=== PATIENT | female | born 1955 | race Caucasian/White ===

== ENCOUNTER 2016-07-15 04:32 | Inpatient (IN) | payer BC ==
[~2016-07-15] VITALS: Ht 160 cm; Wt 125.4 kg
[2016-07-15] VITALS (17 sets, daily range): BP systolic 83–139; BP diastolic 51–98; PULSE 65–127; RESP 18–20; TEMP 97.7–98.7; O2SAT 96–100
[~2016-07-15 04:32] MED LIST: ASPI325T PO; FURO1TAB60 PO; METO50TA11 PO; NAPR500 PO
[2016-07-15] MEDS ORDERED: SODIUM CHLOR 0.9% 1000 ML INJ 1,000 ML IV SCH ×2 (04:45→06:46)
[2016-07-15] MEDS ORDERED: MULTTAB67 PO (04:48)
[2016-07-15] MEDS ORDERED: EYECAP PO (04:48)
--- NOTE | 2016-07-15 04:51 | PD ---
HPI Chief Complaint: Cardiac Complaint Time Seen by Provider: 04:33 Travel History International Travel<30 days: No Contact w/Intl Traveler<30days: No Traveled to known affect area: No History of Present Illness HPI 61-year-old female complains of palpitation. Patient states the symptoms started about 12 hours ago. Patient has history of A. fib and on metoprolol. Her fitter / welder is Dr. Collins. Patient denies any chest pain or shortness of breath with the palpitation. Patient denies any headache. Patient denies any dizziness. Patient denies abdominal pain. Patient denies any nausea vomiting diarrhea. Patient take aspirin twice a day. Patient denies any history hypertension, diabetes, dyslipidemia. Patient is a nonsmoker. [facility] Patient was found to be in atrial fibrillation with heart rates 280. Patient was given Cardizem 20 mg IV. Patient converted to atrial fibrillation with a rate in the 80s. PFSH Past Medical History Hx Anticoagulant Therapy: Yes (ASPIRIN) Arthritis: Yes Atrial Fibrillation: Yes Heart Rhythm Problems: Yes (AFIB) Cancer: No Cardiovascular Problems: Yes (AFIB) High Cholesterol: No Chest Pain: No Congestive Heart Failure: No Developmental Delay: Yes Diabetes: No Diminished Hearing: No Endocrine: No Genitourinary: No Hepatitis: No Hiatal Hernia: No Hypertension: Yes Immune Disorder: No Musculoskeletal: Yes (arthritis both knees) Neurologic: No Psychiatric: No Reproductive: No Respiratory: No Thyroid Disease: No ?: Not Menopausal: Yes Past Surgical History Abdominal Surgery: Yes (epi-n-y gastric by-pass hernia repair with mesh) AICD: No Cardiac Surgery: No Ear Surgery: No Endocrine Surgery: No Eye Surgery: Yes (lasik eye surgery) Genitourinary Surgery: No Gynecologic Surgery: No Joint Replacement: No Neurologic Surgery: No Oral Surgery: No Pacemaker: No Thoracic Surgery: Yes (breast reduction with extra fat tissue removed from arms ) Other Surgery: Yes (LEFT HAND) Social History Alcohol Use: Yes (3 DRINKS A MONTH) Tobacco Use: No Substance Use: No Allergies-Medications (Allergen,Severity, Reaction): Coded Allergies: No Known Allergies (Verified , 04/20/16) Reported Meds & Prescriptions Reported Meds & Active Scripts Active Reported Eye Vitamins (Multiple Vitamins W/ Minerals) 1 Cap 1 Cap PO DAILY Multiple Vitamin 1 Tab 1 Tab PO DAILY Lasix (Furosemide) 40 Mg Tab 40 Mg PO DAILY Naprosyn (Naproxen) 500 Mg Tab 500 Mg PO BID Aspirin 325 Mg Tab 325 Mg PO BID Metoprolol Succinate ER 24 HR (Metoprolol Succinate) 50 Mg Tab 50 Mg PO BID Review of Systems General / Constitutional: No: Fever Eyes: No: Visual changes HENT: No: Headaches Cardiovascular: Positive: Palpitations, No: Chest Pain or Discomfort Respiratory: No: Shortness of Breath Gastrointestinal: No: Abdominal Pain Genitourinary: No: Dysuria Musculoskeletal: No: Pain Skin: No Rash Neurologic: No: Weakness Psychiatric: No: Depression Endocrine: No: Polydipsia Hematologic/Lymphatic: No: Easy Bruising Physical Exam Narrative GENERAL: Well-nourished, well-developed patient. SKIN: Warm and dry. HEAD: Normocephalic. EYES: No scleral icterus. No injection or drainage. NECK: Supple, trachea midline. No JVD or lymphadenopathy. CARDIOVASCULAR: Irregularly irregular rate and rhythm without murmurs, gallops, or rubs. RESPIRATORY: Breath sounds equal bilaterally. No accessory muscle use. GASTROINTESTINAL: Abdomen soft, non-tender, nondistended. MUSCULOSKELETAL: No cyanosis, or edema. BACK: Nontender without obvious deformity. No CVA tenderness. Neurologic exam normal. Data Data Last Documented VS Vital Signs Date Time Temp Pulse Resp B/P Pulse Ox O2 Delivery O2 Flow Rate FiO2 07/15/16 05:49 126 20 86/86 99 Room Air 07/15/16 04:37 97.8 Orders Electrocardiogram (07/15/16 04:42) Complete Blood Count With Diff (07/15/16 04:42) Comprehensive Metabolic Panel (07/15/16 04:42) Creatine Kinase (Cpk) (07/15/16 04:42) Troponin I (07/15/16 04:42) B-Type Natriuretic Peptide (07/15/16 04:42) Prothrombin Time / Inr (Pt) (07/15/16 04:42) Act Partial Throm Time (Ptt) (07/15/16 04:42) Thyroid Stimulating Hormone (07/15/16 04:42) Chest, Single Ap (07/15/16 04:42) Iv Access Insert/Monitor (07/15/16 04:42) Ecg Monitoring (07/15/16 04:42) Oximetry (07/15/16 04:42) Sodium Chlor 0.9% 1000 Ml Inj (Ns 1000 M (07/15/16 04:45) Calcium Chloride Inj (Calcium Chloride I (07/15/16 06:00) Labs Laboratory Tests Test 07/15/16 04:45 White Blood Count 7.6 TH/MM3 Red Blood Count 3.57 MIL/MM3 Hemoglobin 10.8 GM/DL Hematocrit 33.7 % Mean Corpuscular Volume 94.3 FL Mean Corpuscular Hemoglobin 30.2 PG Mean Corpuscular Hemoglobin 32.0 % Concent Red Cell Distribution Width 16.2 % Platelet Count 109 TH/MM3 Mean Platelet Volume 10.0 FL Neutrophils (%) (Auto) 75.2 % Lymphocytes (%) (Auto) 17.6 % Monocytes (%) (Auto) 5.5 % Eosinophils (%) (Auto) 1.5 % Basophils (%) (Auto) 0.2 % Neutrophils # (Auto) 5.7 TH/MM3 Lymphocytes # (Auto) 1.3 TH/MM3 Monocytes # (Auto) 0.4 TH/MM3 Eosinophils # (Auto) 0.1 TH/MM3 Basophils # (Auto) 0.0 TH/MM3 CBC Comment DIFF FINAL Differential Comment Prothrombin Time 11.4 SEC Prothromb Time International 1.0 RATIO Ratio Activated Partial 23.6 SEC Thromboplast Time Sodium Level 146 MEQ/L Potassium Level 3.6 MEQ/L Chloride Level 118 MEQ/L Carbon Dioxide Level 17.9 MEQ/L Anion Gap 10 MEQ/L Blood Urea Nitrogen 20 MG/DL Creatinine 1.00 MG/DL Estimat Glomerular Filtration 57 ML/MIN Rate Random Glucose 153 MG/DL Calcium Level 7.0 MG/DL Protein Corrected Calcium 7.8 MG/DL Total Bilirubin 0.6 MG/DL Aspartate Amino Transf 119 U/L (AST/SGOT) Alanine Aminotransferase 72 U/L (ALT/SGPT) Alkaline Phosphatase 160 U/L Total Creatine Kinase 55 U/L Troponin I LESS THAN 0.02 NG/ML B-Type Natriuretic Peptide 277 PG/ML Total Protein 5.6 GM/DL Albumin 2.8 GM/DL Thyroid Stimulating Hormone 3.050 uIU/ML 3rd Gen [facility] Medical Decision Making Medical Screen Exam Complete: Yes Emergency Medical Condition: Yes Interpretation(s) 4:49 AM. EKG shows atrial flutter with rate 84. 5:54 AM. Chest x-ray shows no acute consolidation. CBC hemoglobin 10.8 hematocrit 33.7. WBC 7.6. Platelet 109. 75 neutrophil. Calcium 7.0. Cardiac enzymes are normal. BNP 277. Differential Diagnosis Differential diagnosis including atrial fibrillation, atrial flutter, SVT, PACs , PVCs. Narrative Course 61-year-old female with atrial fibrillation with RVR. Ventricular rate about 280 when EMS arrived to the scene. Patient was given Cardizem 20 mg IV which resulted in slow rate in the 80s. Normal saline solution 1 25 cc an hour. Calcium chloride 1 g IV given. I spoke with fitter / welder Dr. Champion, on-call for Dr. Collins. Advised amiodarone drip and consult Dr. Virk for possible ablation. Diagnosis Primary Impression: Paroxysmal atrial fibrillation with RVR Juan Manuel Sidhu MD Jul 15, 2016 04:51
[2016-07-15 04:56] LABS: AUTOMATED NEUTROPHIL # 5.7 TH/MM3 (1.8-7.7); BASOPHIL % 0.2 % (0.0-2.0); EOSINOPHIL # 0.1 TH/MM3 (0-0.4); EOSINOPHIL % 1.5 % (0.0-4.0); HEMATOCRIT 33.7 % (35.0-46.0); HEMO FLAGS DIFF FINAL; LYMPH % 17.6 % (9.0-44.0); LYMPHOCYTE # 1.3 TH/MM3 (1.0-4.8); MEAN CELL VOLUME 94.3 FL (80.0-100.0); MEAN CORPUSCULAR HEMOGLOBIN 30.2 PG (27.0-34.0); MONO % 5.5 % (0.0-8.0); NEUT % 75.2 % (16.0-70.0); PLATELET COUNT 109 TH/MM3 (150-450); RED BLOOD COUNT 3.57 MIL/MM3 (4.00-5.30); RED CELL DISTRIBUTION WIDTH 16.2 % (11.6-17.2); WHITE BLOOD COUNT 7.6 TH/MM3 (4.0-11.0)
[2016-07-15 05:10] LABS: APTT (PATIENT) 23.6 SEC (24.3-30.1); PROTHROMBIN TIME - PATIENT 11.4 SEC (9.8-11.6)
--- NOTE | 2016-07-15 05:10 | RADRPT ---
EXAM DATE/TIME: 07/15/2016 04:56 [place] COMPARISON: CHEST SINGLE AP, April 20, 2016, 4:42. INDICATIONS : Pt woke having chest palpitations. MEDICAL HISTORY : A-fib SURGICAL HISTORY : Inguinal hernia repair. Gastric bypass. Breast reduction ENCOUNTER: Initial ACUITY: 1 day PAIN SCORE: 6/10 LOCATION: Bilateral chest FINDINGS: A single view of the chest demonstrates the lungs to be symmetrically aerated without evidence of mas s, infiltrate or effusion. The cardiomediastinal contours are unremarkable. Osseous structures are intact. CONCLUSION: No acute disease. Shyam Telles MD on July 15, 2016 at 5:08 Board Certified Radiologist. This report was verified electronically.
[2016-07-15 05:25] LABS: ANION GAP 10 MEQ/L (5-15); AST (GOT) 119 U/L (15-37); BICARBONATE 17.9 MEQ/L (21.0-32.0); BLOOD UREA NITROGEN 20 MG/DL (7-18); CHLORIDE 118 MEQ/L (98-107); GLOMERULAR FILTRATION RATE 57 ML/MIN (>89); POTASSIUM 3.6 MEQ/L (3.5-5.1); SODIUM (NA) 146 MEQ/L (136-145)
[2016-07-15 05:29] LABS: ALKALINE PHOSPHATASE 160 U/L (45-117); ALT (GPT) 72 U/L (10-53); CALCIUM-PROTEIN CORRECTED 7.8 MG/DL (8.5-10.1); TOTAL BILIRUBIN ADULT 0.6 MG/DL (0.2-1.0)
[2016-07-15 05:33] LABS: CREATINE KINASE 55 U/L (26-192)
[2016-07-15] MEDS ORDERED: CALCIUM CHLORIDE INJ 1 GM in SODIUM CHLORIDE 0.9% INJ 100 ML IV ONE (06:00)
[2016-07-15] MEDS ORDERED: CALCIUM GLUCONATE INJ 1 GM in DEXTROSE 5% IN WATER 100ML INJ 100 ML IV ONE ×2 (06:15)
[2016-07-15] MEDS ORDERED: AMIODARONE INJ 450 MG in DEXTROSE 5% IN WATE(EXCEL) INJ 241 ML IV SCH ×2 (06:15)
[2016-07-15] MEDS ORDERED: ONDANSETRON HCL 4 MG/2 ML VIAL IVP PRN (07:00)
[2016-07-15] MEDS ORDERED: ACETAMINOPHEN 325 MG TAB PO PRN (07:00)
[2016-07-15] MEDS ORDERED: SODIUM CHLORIDE 0.9% FLUSH 5 ML FLUSH FLUSH PRN (07:00)
[2016-07-15] MEDS ORDERED: BISACODYL 10 MG SUPP PR PRN (07:00)
[2016-07-15] MEDS ORDERED: MORPHINE SULFATE 4 MG/ML INJ IV PRN (07:00)
[2016-07-15] MEDS: SODIUM CHLORIDE 0.9% FLUSH 5 ML FLUSH FLUSH SCH ×2 (09:00→21:00)
--- NOTE | 2016-07-15 09:47 | PD.CONS ---
HPI Service Cardiology Consult Requested By Primary Care Physician No Primary Care Physician History of Present Illness 61-year-old female admitted with atrial fibrillation with RVR and complains of palpitations. PMHx significant for chronic Afib on Metoprolol, CHADSVaCS=1 only in ASA 325mg. Followed by Dr. Collins. Patient denies any chest pain or shortness of breath with the palpitation. Patient denies any headache. Patient denies any dizziness. Patient denies abdominal pain. Patient denies any nausea vomiting diarrhea. HR in the 180 in ER slowed down with IV Cardizem. Started on Amio drip. Consulted for afib management. Review of Systems Consitutional: DENIES: Fatigue, Fever, Chills, Weight gain, Weight loss Eyes: DENIES: Amaurosis Fugax, Change in vision HEENT: DENIES: Lightheadedness, Change in hearing Respiratory: DENIES: See HPI, Cough, Snoring, Shortness of breath, Wheezing, Sputum production Cardiovascular: COMPLAINS OF: See HPI Gastrointestinal: DENIES: Nausea, Vomiting, Change in bowel habits, Reflux, Bloody stools, Melena Genitourinary: DENIES: Urinary incontinence, Difficulty voiding Integumentary: DENIES: Rash Neurologic: DENIES: Tingling or numbness, Memory problems, Poor Balance, Stroke symptoms Musculoskeletal: DENIES: Joint pain, Muscle pain, Limited range of motion, Back pain Psychiatric: DENIES: Anxiety, Depression, Sleep disturbances Hematologic: DENIES: Bruising tendencies, Bleeding tendencies Endocrine: DENIES: Weight gain, Weight loss, Thyroid disease Past Family Social History Allergies: Coded Allergies: No Known Allergies (Verified , 04/20/16) Past Medical History morbid obesity Afib Reported Medications Reported Meds & Active Scripts Active Reported Eye Vitamins (Multiple Vitamins W/ Minerals) 1 Cap 1 Cap PO DAILY Multiple Vitamin 1 Tab 1 Tab PO DAILY Lasix (Furosemide) 40 Mg Tab 40 Mg PO DAILY Naprosyn (Naproxen) 500 Mg Tab 500 Mg PO BID Aspirin 325 Mg Tab 325 Mg PO BID Metoprolol Succinate ER 24 HR (Metoprolol Succinate) 50 Mg Tab 50 Mg PO BID Active Ordered Medications Current Medications Medications (Trade) Dose Ordered Sig/Mariel Route Start Time Stop Time Status Last Admin Amiodarone HCl 450 mg/Dextrose 250 ml @ 0 mls/hr CONTINUOUS IV 07/15/16 06:15 07/15/16 07:49 (NS 1000 ml Inj) 1,000 ml @ 100 mls/hr Q10H IV 07/15/16 06:46 07/15/16 07:50 (NS Flush) 2 ml UNSCH PRN FLUSH 07/15/16 07:00 (NS Flush) 2 ml BID FLUSH 07/15/16 09:00 (Zofran Inj) 4 mg Q6H PRN IVP 07/15/16 07:00 (Dulcolax Supp) 10 mg DAILY PRN [place] 07/15/16 07:00 (Tylenol) 650 mg Q6H PRN PO 07/15/16 07:00 ([place] 5-325 Mg) 1 tab Q4H PRN PO 07/15/16 07:00 (Morphine Inj) 2 mg Q3H PRN IV 07/15/16 07:00 (Ecotrin Ec) 325 mg DAILY PO 07/15/16 09:00 Family History Noncontributory Social History Denies smoking, alcohol use or illicit drug use Physical Exam Vital Signs Vital Signs Date Time Temp Pulse Resp B/P Pulse Ox O2 Delivery O2 Flow Rate FiO2 07/15/16 08:33 103 18 119/58 99 Room Air 07/15/16 07:17 106 18 92/55 98 Room Air 07/15/16 06:22 127 20 90/66 99 Room Air 07/15/16 05:49 126 20 86/86 99 Room Air 07/15/16 05:05 100 18 83/51 96 Room Air 07/15/16 04:45 99 Room Air 07/15/16 04:41 97 07/15/16 04:37 97.8 99 18 96/54 98 Physical Exam GENERAL: Well-nourished, well-developed patient. SKIN: Warm and dry. HEAD: Normocephalic. EYES: No scleral icterus. No injection or drainage. NECK: Supple, trachea midline. No JVD or lymphadenopathy. CARDIOVASCULAR: Irr Irr no murmurs, gallops, or rubs. RESPIRATORY: Breath sounds equal bilaterally. No accessory muscle use. GASTROINTESTINAL: Obese Abdomen soft, non-tender, nondistended. EXTREMITIES: No cyanosis, or edema. NEUROLOGICAL: Awake, alert, and oriented x 3. Non-focal. Laboratory Laboratory Tests Test 07/15/16 04:45 White Blood Count 7.6 Red Blood Count 3.57 Hemoglobin 10.8 Hematocrit 33.7 Mean Corpuscular Volume 94.3 Mean Corpuscular Hemoglobin 30.2 Mean Corpuscular Hemoglobin 32.0 Concent Red Cell Distribution Width 16.2 Platelet Count 109 Mean Platelet Volume 10.0 Neutrophils (%) (Auto) 75.2 Lymphocytes (%) (Auto) 17.6 Monocytes (%) (Auto) 5.5 Eosinophils (%) (Auto) 1.5 Basophils (%) (Auto) 0.2 Neutrophils # (Auto) 5.7 Lymphocytes # (Auto) 1.3 Monocytes # (Auto) 0.4 Eosinophils # (Auto) 0.1 Basophils # (Auto) 0.0 CBC Comment DIFF FINAL Differential Comment Prothrombin Time 11.4 Prothromb Time International 1.0 Ratio Activated Partial 23.6 Thromboplast Time Sodium Level 146 Potassium Level 3.6 Chloride Level 118 Carbon Dioxide Level 17.9 Anion Gap 10 Blood Urea Nitrogen 20 Creatinine 1.00 Estimat Glomerular Filtration 57 Rate Random Glucose 153 Calcium Level 7.0 Protein Corrected Calcium 7.8 Total Bilirubin 0.6 Aspartate Amino Transf 119 (AST/SGOT) Alanine Aminotransferase 72 (ALT/SGPT) Alkaline Phosphatase 160 Total Creatine Kinase 55 Troponin I LESS THAN 0.02 B-Type Natriuretic Peptide 277 Total Protein 5.6 Albumin 2.8 Thyroid Stimulating Hormone 3.050 3rd Gen Result Diagram: 07/15/16 0445 07/15/16 044 Imaging Last Impressions Chest X-Ray 07/15/16441 Signed Impressions: Service Date/Time: Friday, July 15, 2016 04:56 - CONCLUSION: No acute disease. Shyam Telles MD Assessment and Plan Problem List: (1) Paroxysmal atrial fibrillation with RVR Assessment and Plan: Cont Amio drip Cont PO Metoprolol Cont ASA 325mg PO daily Consult Dr. Valente for afib ablation Get 2Decho Will need LHC vs. MPI prior to ablation Thank you for the opportunity to take part in the care of this patient Will follow with you (2) Morbid obesity Tutu Hanson MD Jul 15, 2016 09:47
[2016-07-15] MEDS: ASPIRIN EC 325 MG TABEC PO SCH (09:59)
--- NOTE | 2016-07-15 12:31 | EKG ---
Date Performed: 07/15/2016 Time Performed: 04:43:11 PTAGE: 61 years EKG: ATRIAL FIBRILLATION WITH RAPID VENTRICULAR RESPONSE ABNORMAL RHYTHM ECG PREVIOUS TRACING 04/20/2016 05.09.47 Compared to previous tracing, atrial fibrillation is new. DOCTOR: Presley De Dios Interpretating Date/Time 07/15/2016 12:29:55
[2016-07-15 13:46] LABS: BICARBONATE 22.3 MEQ/L (21.0-32.0); POTASSIUM 3.7 MEQ/L (3.5-5.1)
[2016-07-16] VITALS (22 sets, daily range): BP systolic 113–131; BP diastolic 59–76; PULSE 62–114; RESP 16–18; TEMP 97.6–98.3; O2SAT 94–100
--- NOTE | 2016-07-16 06:07 | HHI.HP ---
HPI Service Date of service 07/15/16. Late entry. Patient seen the morning of 07/15/16. [facility] Primary Care Physician No Primary Care Physician Admission Diagnosis atrial fibrillation with RVR Diagnoses: Travel History International Travel<30 Days: No Contact w/Intl Traveler <30 Da: No Traveled to Known Affected Are: No History of Present Illness Patient is a pleasant 61-year-old female with a history of atrial fibrillation, hypertension, chronic osteoarthritic pain, who presents with palpitations, sensation of "racing heartbeat", which started on 07/14 around 3:30 PM, and has been intermittent since that time. She did take metoprolol when this started initially, and did help for a while, however she woke up in the middle of the night with palpitations, heart pounding. She denies any chest pain or shortness of breath. Patient was started on amiodarone loading in the ER, and heart rate is currently controlled. She says she currently feels great. She denies any recent fevers, chills. Denies any recent medication changes. He states that prior to her palpitations starting yesterday, she felt fine. Patient does have chronic bilateral lower extremity edema, which is calm. By obesity. She says that this waxes and wanes, has not changed significantly recently. Review of Systems Other performed and negative except for HPI and past medical history. Past Family Social History Past Medical History Morbid obesity Atrial fibrillation Osteoarthritis Chronic bilateral lower extremity edema Past Surgical History Bilateral foot surgeries for bunions Gastric bypass Breast reduction Tonsillectomy Left hand surgery. Abdominal hernia surgery. Reported Medications Eye Vitamins (Multiple Vitamins W/ Minerals) 1 Cap 1 Cap PO DAILY Multiple Vitamin 1 Tab 1 Tab PO DAILY Lasix (Furosemide) 40 Mg Tab 40 Mg PO DAILY Naprosyn (Naproxen) 500 Mg Tab 500 Mg PO BID Aspirin 325 Mg Tab 325 Mg PO BID Metoprolol Succinate ER 24 HR (Metoprolol Succinate) 50 Mg Tab 50 Mg PO BID Allergies: Coded Allergies: No Known Allergies (Verified , 04/20/16) Family History Mother alive with COPD. Father from alcoholic cirrhosis. Social History Nonsmoker. Patient drinks rarely. Denies any illicit drugs. 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 She says her mother will be fine at home for a few days. Physical Exam Vital Signs Vital Signs Date Time Temp Pulse Resp B/P Pulse Ox O2 Delivery O2 Flow Rate FiO2 07/16/16 05:00 70 07/16/16 04:00 114 07/16/16 03:00 113/59 99 07/16/16 03:00 79 07/16/16 02:00 84 07/16/16 01:00 82 07/16/16 00:00 78 07/15/16 23:00 97.7 82 120/74 96 07/15/16 23:00 88 07/15/16 22:00 72 07/15/16 21:00 82 07/15/16 20:00 84 07/15/16 19:00 98.7 88 139/98 99 07/15/16 19:00 82 07/15/16 16:00 68 20 122/68 98 07/15/16 15:00 68 20 120/70 97 07/15/16 13:08 98.3 70 20 138/74 100 07/15/16 11:40 65 18 118/62 99 Room Air 07/15/16 09:43 97 18 109/65 98 Room Air 07/15/16 08:33 103 18 119/58 99 Room Air 07/15/16 07:17 106 18 92/55 98 Room Air 07/15/16 06:22 127 20 90/66 99 Room Air Physical Exam GENERAL: This is a well-nourished, well-developed patient, in no apparent distress.obese. Alert and oriented 3. SKIN: No rashes, ecchymoses or lesions. Cool and dry. HEAD: Atraumatic. Normocephalic. No temporal or scalp tenderness. EYES: Pupils equal round and reactive. Extraocular motions intact. No scleral icterus. No injection or drainage. ENT: Nose without bleeding, purulent drainage or septal hematoma. Throat without erythema, tonsillar hypertrophy or exudate. Uvula midline. Airway patent. NECK: Trachea midline. No JVD or lymphadenopathy. Supple, nontender, no meningeal signs. CARDIOVASCULAR: irregularly irregular.rate controlled. No murmurs. RESPIRATORY: Clear to auscultation. Breath sounds equal bilaterally. No wheezes , rales, or rhonchi. GASTROINTESTINAL: Abdomen soft, non-tender, nondistended. No hepato-splenomegaly , or palpable masses. No guarding. MUSCULOSKELETAL: Extremities without clubbing, cyanosis. No joint tenderness, effusion. patient does have what appears to be chronic nonpitting edema bilateral lower extremities. Nonpitting likely due to significant obesity. No calf tenderness. Negative Homans sign bilaterally. NEUROLOGICAL: Awake and alert. Cranial nerves II through XII intact. Motor and sensory grossly within normal limits. Five out of 5 muscle strength in all muscle groups. Normal speech. Laboratory Laboratory Tests Test 07/15/16 13:23 Sodium Level 148 Potassium Level 3.7 Chloride Level 116 Carbon Dioxide Level 22.3 Anion Gap 10 Blood Urea Nitrogen 19 Creatinine 0.85 Estimat Glomerular Filtration 68 Rate Random Glucose 99 Calcium Level 8.2 Result Diagram: 07/15/1644407/15/16 1323 Imaging Last Impressions Chest X-Ray 07/15/16441 Signed Impressions: Service Date/Time: Friday, July 15, 2016 04:56 - CONCLUSION: No acute disease. Shyam Telles MD Assessment and Plan Assessment and Plan //Atrial fibrillation -Echocardiogram pending. On amiodarone loading as per cardiology. Continue metoprolol. Continue aspirin as per cardiology. Much improved on treatment. Management as per cardiology. Appreciate assistance -Possible A. fib ablation tomorrow. //Thrombocytopenia. Platelets 109 on admission. This appears to be chronic since 2011. No bleeding. Monitor. //Anemia. Hemoglobin 10.8 on admission. 12.6 at baseline. No bleeding. Monitor. Follow-up outpatient //Hypernatremia //Non-anion Gap metabolic acidosis. Likely artifactual secondary to normal saline. Switch to half-normal saline. //Prophylaxis. SCDs. Anticoagulation as per cardiology. Code Status full code Discussed Condition With patient, nurse. Physician Certification 2 Midnight Certification Type: Admission for Inpatient Services Order for Inpatient Services The services are ordered in accordance with Medicare regulations or non- Medicare payer requirements, as applicable. In the case of services not specified as inpatient-only, they are appropriately provided as inpatient services in accordance with the 2-midnight benchmark. Estimated LOS (days): 2 days is the estimated time the patient will need to remain in the hospital, assuming treatment plan goals are met and no additional complications. Post-Hospital Plan: Home Amador Hilliard MD Jul 16, 2016 06:07
[2016-07-16 06:53] LABS: AUTOMATED NEUTROPHIL # 4.3 TH/MM3 (1.8-7.7); BASOPHIL % 0.4 % (0.0-2.0); EOSINOPHIL # 0.1 TH/MM3 (0-0.4); EOSINOPHIL % 1.5 % (0.0-4.0); HEMATOCRIT 31.7 % (35.0-46.0); HEMO FLAGS DIFF FINAL; LYMPH % 20.8 % (9.0-44.0); LYMPHOCYTE # 1.3 TH/MM3 (1.0-4.8); MEAN CELL VOLUME 92.9 FL (80.0-100.0); MEAN CORPUSCULAR HEMOGLOBIN 30.1 PG (27.0-34.0); MEAN CORPUSCULAR HGB CONC 32.3 % (32.0-36.0); MONO % 7.4 % (0.0-8.0); NEUT % 69.9 % (16.0-70.0); PLATELET COUNT 101 TH/MM3 (150-450); RED BLOOD COUNT 3.41 MIL/MM3 (4.00-5.30); RED CELL DISTRIBUTION WIDTH 16.2 % (11.6-17.2); WHITE BLOOD COUNT 6.1 TH/MM3 (4.0-11.0)
[2016-07-16 07:34] LABS: ALKALINE PHOSPHATASE 148 U/L (45-117); ALT (GPT) 62 U/L (10-53); ANION GAP 9 MEQ/L (5-15); AST (GOT) 53 U/L (15-37); BICARBONATE 23.3 MEQ/L (21.0-32.0); BLOOD UREA NITROGEN 17 MG/DL (7-18); CHLORIDE 113 MEQ/L (98-107); GLOMERULAR FILTRATION RATE 60 ML/MIN (>89); POTASSIUM 3.4 MEQ/L (3.5-5.1); SODIUM (NA) 145 MEQ/L (136-145); TOTAL BILIRUBIN ADULT 0.6 MG/DL (0.2-1.0)
[2016-07-16] MEDS ORDERED: INFLUENZA VIRUS VACCINE (QUADRIVALENT) 0.5 ML SYR IM ONE (09:00)
[2016-07-16] MEDS ORDERED: PNEUMOCOCCAL POLYVALENT INJ 25 MCG/0.5 ML SYR IM ONE (09:00)
[2016-07-16] MEDS: ASPIRIN EC 325 MG TABEC PO SCH (09:17)
[2016-07-16] MEDS: SODIUM CHLORIDE 0.9% FLUSH 5 ML FLUSH FLUSH SCH ×2 (09:17→20:28)
[2016-07-16] MEDS ORDERED: POTASSIUM CHLORIDE 10 MEQ CONTROLLED RELEASE TAB PO ONE (11:00)
[2016-07-16] MEDS: SODIUM CHLOR 0.45% 1000 ML INJ 1,000 ML IV SCH (11:10)
--- NOTE | 2016-07-16 15:23 | PD.CARD.PN ---
Subjective Subjective Remarks no complaints no overnight events Objective Medications Current Medications Medications (Trade) Dose Ordered Sig/Mariel Route Start Time Stop Time Status Last Admin (Cordarone Inj/ D5W ([place]) Inj) 250 ml @ 0 mls/hr CONTINUOUS IV 07/15/16 06:15 07/15/16 07:49 (NS Flush) 2 ml UNSCH PRN FLUSH 07/15/16 07:00 (NS Flush) 2 ml BID FLUSH 07/15/16 09:00 07/16/16 09:17 (Zofran Inj) 4 mg Q6H PRN IVP 07/15/16 07:00 (Dulcolax Supp) 10 mg DAILY PRN [place] 07/15/16 07:00 (Tylenol) 650 mg Q6H PRN PO 07/15/16 07:00 ([place] 5-325 Mg) 1 tab Q4H PRN PO 07/15/16 07:00 (Morphine Inj) 2 mg Q3H PRN IV 07/15/16 07:00 Aspirin 325 mg 325 mg DAILY PO 07/15/16 09:00 07/16/16 09:17 (1/2 NS 1000 ml Inj) 1,000 ml @ 84 mls/hr [id number] IV 07/15/16 23:15 07/16/16 11:10 (Lopressor) 50 mg Q12HR PO 07/16/16 21:00 Vital Signs / I&O Vital Signs Date Time Temp Pulse Resp B/P Pulse Ox O2 Delivery O2 Flow Rate FiO2 07/16/16 13:00 104 07/16/16 12:00 82 07/16/16 11:00 97.6 83 18 131/69 100 07/16/16 11:00 84 07/16/16 10:00 77 07/16/16 09:00 88 07/16/16 08:00 62 07/16/16 07:00 97.7 92 18 131/67 99 07/16/16 07:00 84 07/16/16 05:00 70 07/16/16 04:00 114 07/16/16 03:00 113/59 99 07/16/16 03:00 79 07/16/16 02:00 84 07/16/16 01:00 82 07/16/16 00:00 78 07/15/16 23:00 97.7 82 120/74 96 07/15/16 23:00 88 07/15/16 22:00 72 07/15/16 21:00 82 07/15/16 20:00 84 07/15/16 19:00 98.7 88 139/98 99 07/15/16 19:00 82 07/15/16 16:00 68 20 122/68 98 I/O 07/15/16 07/15/16 07/15/16 07/16/16 07/16/16 07/16/16 07:00 15:00 23:00 07:00 15:00 23:00 Intake Total 120 ml Output Total 450 ml Balance -330 ml Intake Oral 120 ml Output Urine Total 450 ml Physical Exam GENERAL: Well-nourished, well-developed patient. SKIN: Warm and dry. HEAD: Normocephalic. EYES: No scleral icterus. No injection or drainage. NECK: Supple, trachea midline. No JVD or lymphadenopathy. CARDIOVASCULAR: Regular rate and rhythm without murmurs, gallops, or rubs. RESPIRATORY: Breath sounds equal bilaterally. No accessory muscle use. GASTROINTESTINAL: Abdomen soft, non-tender, nondistended. EXTREMITIES: No cyanosis, or edema. NEUROLOGICAL: Awake, alert, and oriented x 3. Non-focal. Laboratory Laboratory Tests Test 07/16/16 05:35 White Blood Count 6.1 TH/MM3 Red Blood Count 3.41 MIL/MM3 Hemoglobin 10.2 GM/DL Hematocrit 31.7 % Mean Corpuscular Volume 92.9 FL Mean Corpuscular Hemoglobin 30.1 PG Mean Corpuscular Hemoglobin 32.3 % Concent Red Cell Distribution Width 16.2 % Platelet Count 101 TH/MM3 Mean Platelet Volume 10.0 FL Neutrophils (%) (Auto) 69.9 % Lymphocytes (%) (Auto) 20.8 % Monocytes (%) (Auto) 7.4 % Eosinophils (%) (Auto) 1.5 % Basophils (%) (Auto) 0.4 % Neutrophils # (Auto) 4.3 TH/MM3 Lymphocytes # (Auto) 1.3 TH/MM3 Monocytes # (Auto) 0.5 TH/MM3 Eosinophils # (Auto) 0.1 TH/MM3 Basophils # (Auto) 0.0 TH/MM3 CBC Comment DIFF FINAL Differential Comment Sodium Level 145 MEQ/L Potassium Level 3.4 MEQ/L Chloride Level 113 MEQ/L Carbon Dioxide Level 23.3 MEQ/L Anion Gap 9 MEQ/L Blood Urea Nitrogen 17 MG/DL Creatinine 0.95 MG/DL Estimat Glomerular Filtration 60 ML/MIN Rate Random Glucose 87 MG/DL Calcium Level 8.0 MG/DL Magnesium Level 2.0 MG/DL Total Bilirubin 0.6 MG/DL Aspartate Amino Transf 53 U/L (AST/SGOT) Alanine Aminotransferase 62 U/L (ALT/SGPT) Alkaline Phosphatase 148 U/L Total Protein 6.1 GM/DL Albumin 3.2 GM/DL Assessment and Plan Problem List: (1) Paroxysmal atrial fibrillation with RVR Assessment and Plan: D/C Amio drip Cont Metoprolol 50mg PO BID Replete Calcium Dr. Valente to evaluate for ablation (2) Morbid obesity Tutu Hanson MD Jul 16, 2016 15:23
[2016-07-16] MEDS: APIXABAN 5 MG TABLET PO SCH (20:28)
[2016-07-16] MEDS: METOPROLOL TARTRATE 50 MG TAB PO SCH (20:28)
[2016-07-17] VITALS (16 sets, daily range): BP systolic 117–139; BP diastolic 61–78; PULSE 66–94; RESP 18–20; TEMP 97.2–98.5; O2SAT 94–98
[2016-07-17 06:52] LABS: AUTOMATED NEUTROPHIL # 3.7 TH/MM3 (1.8-7.7); BASOPHIL % 0.2 % (0.0-2.0); EOSINOPHIL # 0.1 TH/MM3 (0-0.4); HEMATOCRIT 30.5 % (35.0-46.0); LYMPH % 25.5 % (9.0-44.0); LYMPHOCYTE # 1.5 TH/MM3 (1.0-4.8); MEAN CELL VOLUME 91.3 FL (80.0-100.0); MEAN CORPUSCULAR HEMOGLOBIN 30.7 PG (27.0-34.0); MEAN CORPUSCULAR HGB CONC 33.6 % (32.0-36.0); NEUT % 63.3 % (16.0-70.0); PLATELET COUNT 99 TH/MM3 (150-450); RED BLOOD COUNT 3.34 MIL/MM3 (4.00-5.30); WHITE BLOOD COUNT 5.8 TH/MM3 (4.0-11.0)
[2016-07-17 06:54] LABS: HEMO FLAGS AUTO DIFF
--- NOTE | 2016-07-17 07:00 | MB ---
cc: JEANA BLACKMAN M.D. DATE OF CONSULTATION 07/16/2016 REASON FOR CONSULTATION Atrial fibrillation with fast ventricular response. HISTORY OF PRESENT ILLNESS Ms. Moore is a 61-year-old female with history of high blood pressure, obesity, previous atrial fibrillation around three years ago. For the past 6 months to a year, she has had at least three hospitalizations due to atrial fibrillation with fast ventricular response. She was admitted. Cardizem and amiodarone were initiated, heart rate control. I was consulted for further evaluation and management. The chart was reviewed. The patient was evaluated. ALLERGIES None reported. SOCIAL HISTORY The patient denies smoking and drinking. FAMILY HISTORY Noncontributory to her current medical condition. MEDICATIONS 1. Aspirin 325 mg a day. 1. Metoprolol. 2. She was on amiodarone. REVIEW OF SYSTEMS Currently she refers no chest pain, no chest discomfort. No vomiting. No fever. PHYSICAL EXAMINATION GENERAL: Alert, fully oriented. VITAL SIGNS: Her blood pressure is 127/73, pulse currently around 82, respiratory rate 18. LUNGS: Ventilated. Cardiovascular: S1, S2. No gallop. No murmur. ABDOMEN: Soft. No mass. No bruit. Obese. EXTREMITIES: With no edema. There is some redness in the left elbow due to medication infiltration. CARDIOLOGY STUDIES Electrocardiogram On hospitalization atrial fibrillation with fast ventricular response. Current telemetry shows sinus rhythm. LABORATORY DATA Hemoglobin is 10.2, white blood cells 6.1. Potassium 3.4, creatinine 0.95. ASSESSMENT AND RECOMMENDATIONS Mrs. Moore has atrial fibrillation. It is getting very frequent. She has had multiple episodes. She has basically CHADS1, 2 at the most. She was only on aspirin. She converted into sinus rhythm. My recommendation at this point is to initiate anticoagulation for the next two weeks and then readmit her for atrial fibrillation ablation. Also, nuclear stress study not available. I am going to order nuclear stress study. Eliquis initiated. If the nuclear stress study is negative in the morning, she can be discharged home. Procedure is already scheduled. Jeana Blackman MD HS/SSB /5:42 PM /6:51 AM
[2016-07-17 07:08] LABS: BICARBONATE 25.5 MEQ/L (21.0-32.0); POTASSIUM 3.7 MEQ/L (3.5-5.1)
[2016-07-17] MEDS: METOPROLOL TARTRATE 50 MG TAB PO SCH ×2 (08:11→20:44)
[2016-07-17] MEDS: APIXABAN 5 MG TABLET PO SCH ×2 (08:12→20:44)
[2016-07-17] MEDS: SODIUM CHLORIDE 0.9% FLUSH 5 ML FLUSH FLUSH SCH ×2 (08:12→20:44)
[2016-07-17 08:17] LABS: PLATELET ESTIMATE SMEAR LOW (NORMAL); PLATELET MORPHOLOGY NORMAL (NORMAL); SCAN/DIFF AUTO DIFF CONFIRMED
[2016-07-17] MEDS ORDERED: REGADENOSON INJ 0.4 MG/5 ML SYR ONE (09:18)
[2016-07-17] MEDS: SODIUM CHLOR 0.45% 1000 ML INJ 1,000 ML IV SCH (11:00)
--- NOTE | 2016-07-17 12:03 | RADRPT ---
EXAM DATE/TIME: 07/17/2016 10:38 [facility] COMPARISON: No previous studies available for comparison. INDICATIONS : Increased lab values. MEDICAL HISTORY : Hypertension. Atrial fibrillation. Arthritis. SURGICAL HISTORY : Tonsillectomy. Cholecystectomy. Breast reduction. Fat removed from arms. Gastric bypass. Hernia rep air. Breast biopsy. Bunionectomy. ENCOUNTER: Initial ACUITY: 1 day PAIN SCORE: 0/10 LOCATION: Abdomen. MEASUREMENTS: LIVER: 17.4 cm length COMMON DUCT: 8 mm RIGHT KIDNEY: 10.7 x 4.5 x 4.4 cm SPLEEN: 14.4 cm length FINDINGS: LIVER: There is some increased echogenicity suggestive of fatty infiltration. No dilated biliary ducts are d emonstrated. There is no evidence of ascites. The portal system is patent. COMMON DUCT: No intraluminal mass or stone visualized. GALLBLADDER: Removed PANCREAS: The visualized portions are within normal limits. RIGHT KIDNEY: No hydronephrosis, stone or mass. SPLEEN: No focal lesion. CONCLUSION: 1. Fatty infiltration of the liver. 2. Mild splenomegaly. Dave Nelson MD on July 17, 2016 at 12:01 Board Certified Radiologist. This report was verified electronically.
--- NOTE | 2016-07-17 14:33 | PD.CARD.PN ---
Subjective Subjective Remarks No chest pain or complaints. Objective Medications Current Medications Medications (Trade) Dose Ordered Sig/Mariel Route Start Time Stop Time Status Last Admin (NS Flush) 2 ml UNSCH PRN FLUSH 07/15/16 07:00 (NS Flush) 2 ml BID FLUSH 07/15/16 09:00 07/17/16 08:12 (Zofran Inj) 4 mg Q6H PRN IVP 07/15/16 07:00 (Dulcolax Supp) 10 mg DAILY PRN OR 07/15/16 07:00 (Tylenol) 650 mg Q6H PRN PO 07/15/16 07:00 ([place] 5-325 Mg) 1 tab Q4H PRN PO 07/15/16 07:00 Morphine Sulfate 2 mg 2 mg Q3H PRN IV 07/15/16 07:00 (12 NS 1000 ml Inj) 1,000 ml @ 84 mls/hr [id number] IV 07/15/16 23:15 07/16/16 11:10 (Lopressor) 50 mg Q12HR PO 07/16/16 21:00 07/17/16 08:11 (Eliquis) 5 mg BID PO 07/16/16 21:00 07/17/16 08:12 Vital Signs / I&O Vital Signs Date Time Temp Pulse Resp B/P Pulse Ox O2 Delivery O2 Flow Rate FiO2 07/17/16 12:17 98.0 79 18 98 07/17/16 10:00 91 Room Air 07/17/16 08:01 72 18 139/78 97 07/17/16 08:00 92 Nasal Cannula 2.00 07/17/16 07:00 94 07/17/16 06:00 66 07/17/16 05:00 70 07/17/16 04:00 72 07/17/16 04:00 98.2 79 18 117/64 95 07/17/16 03:00 66 07/17/16 02:00 68 07/17/16 01:00 72 07/17/16 00:00 97.2 72 18 124/69 94 07/17/16 00:00 72 07/16/16 23:00 72 07/16/16 22:00 92 07/16/16 20:00 82 07/16/16 19:00 84 07/16/16 19:00 98.3 88 16 124/76 94 07/16/16 18:00 90 07/16/16 17:00 91 07/16/16 16:00 90 07/16/16 15:00 98.0 94 18 127/73 99 07/16/16 15:00 69 I/O 07/16/16 07/16/16 07/16/16 07/17/16 07/17/16 07/17/16 07:00 15:00 23:00 07:00 15:00 23:00 Intake Total 120 ml 1104 ml 480 ml Output Total 450 ml 850 ml Balance -330 ml 1104 ml -370 ml Intake Oral 120 ml 520 ml 480 ml IV Total 584 ml Output Urine Total 450 ml 850 ml # Voids 5 # Bowel Movements 1 Physical Exam GENERAL: Well-nourished, obese, well-developed patient. SKIN: Warm and dry. HEAD: Normocephalic. EYES: No scleral icterus. No injection or drainage. NECK: Supple, trachea midline. No JVD or lymphadenopathy. CARDIOVASCULAR: Regular rate and rhythm without murmurs, gallops, or rubs. RESPIRATORY: Breath sounds equal bilaterally. No accessory muscle use. GASTROINTESTINAL: Abdomen soft, non-tender, nondistended. EXTREMITIES: No cyanosis, or edema. NEUROLOGICAL: Awake, alert, and oriented x 3. Non-focal. Laboratory Laboratory Tests Test 07/17/16 05:15 White Blood Count 5.8 TH/MM3 Red Blood Count 3.34 MIL/MM3 Hemoglobin 10.2 GM/DL Hematocrit 30.5 % Mean Corpuscular Volume 91.3 FL Mean Corpuscular Hemoglobin 30.7 PG Mean Corpuscular Hemoglobin 33.6 % Concent Red Cell Distribution Width 16.0 % Platelet Count 99 TH/MM3 Mean Platelet Volume 10.3 FL Neutrophils (%) (Auto) 63.3 % Lymphocytes (%) (Auto) 25.5 % Monocytes (%) (Auto) 9.0 % Eosinophils (%) (Auto) 2.0 % Basophils (%) (Auto) 0.2 % Neutrophils # (Auto) 3.7 TH/MM3 Lymphocytes # (Auto) 1.5 TH/MM3 Monocytes # (Auto) 0.5 TH/MM3 Eosinophils # (Auto) 0.1 TH/MM3 Basophils # (Auto) 0.0 TH/MM3 CBC Comment AUTO DIFF Differential Comment AUTO DIFF CONFIRMED Platelet Estimate LOW Platelet Morphology Comment NORMAL Red Cell Morphology Comment NORMAL Sodium Level 146 MEQ/L Potassium Level 3.7 MEQ/L Chloride Level 112 MEQ/L Carbon Dioxide Level 25.5 MEQ/L Anion Gap 9 MEQ/L Blood Urea Nitrogen 13 MG/DL Creatinine 0.81 MG/DL Estimat Glomerular Filtration 72 ML/MIN Rate Random Glucose 87 MG/DL Calcium Level 8.1 MG/DL Hepatitis A IgM Antibody NEGATIVE Hepatitis B Surface Antigen NEGATIVE Hepatitis B Core IgM Antibody NEGATIVE Hepatitis C Antibody NEGATIVE Assessment and Plan Problem List: (1) Paroxysmal atrial fibrillation with RVR Assessment and Plan: Pending stress test today. If negative can be discharged home and followed as an outpatient. Continue apixaban. (2) Morbid obesity Assessment and Plan: Heart healthy diet, exercise. Discussed Condition With A&P d/w pt., RN, Dr. Valente. Imani De Oliveira Jul 17, 2016 14:32
--- NOTE | 2016-07-17 15:20 | HHI.PR ---
Subjective Remarks Date of service 07/16/16. pt seen the morning of 07/16/16. no CP or sob. no palpitations. Objective Vital Signs Date Time Temp Pulse Resp B/P Pulse Ox O2 Delivery O2 Flow Rate FiO2 07/17/16 14:00 80 07/17/16 13:00 67 07/17/16 12:17 98.0 79 18 98 07/17/16 12:16 80 07/17/16 10:00 91 Room Air 07/17/16 08:01 72 18 139/78 97 07/17/16 08:00 92 Nasal Cannula 2.00 07/17/16 07:00 94 07/17/16 07:00 90 07/17/16 06:00 66 07/17/16 05:00 70 07/17/16 04:00 72 07/17/16 04:00 98.2 79 18 117/64 95 07/17/16 03:00 66 07/17/16 02:00 68 07/17/16 01:00 72 07/17/16 00:00 97.2 72 18 124/69 94 07/17/16 00:00 72 07/16/16 23:00 72 07/16/16 22:00 92 07/16/16 20:00 82 07/16/16 19:00 84 07/16/16 19:00 98.3 88 16 124/76 94 07/16/16 18:00 90 07/16/16 17:00 91 07/16/16 16:00 90 I/O 07/16/16 07/16/16 07/16/16 07/17/16 07/17/16 07/17/16 07:00 15:00 23:00 07:00 15:00 23:00 Intake Total 120 ml 1104 ml 480 ml Output Total 450 ml 850 ml Balance -330 ml 1104 ml -370 ml Intake Oral 120 ml 520 ml 480 ml IV Total 584 ml Output Urine Total 450 ml 850 ml # Voids 5 # Bowel Movements 1 Result Diagram: 07/17/1615 07/17/1615 Objective Remarks GENERAL: obese. lying in bed. appears comfortable. AAOx3 SKIN: Warm and dry. HEAD: Normocephalic. EYES: No scleral icterus. No injection or drainage. NECK: Supple, trachea midline. No JVD. CARDIOVASCULAR: Regular rate and rhythm without murmurs, gallops, or rubs. RESPIRATORY: Breath sounds equal bilaterally. No accessory muscle use. GASTROINTESTINAL: Abdomen soft, non-tender, nondistended. MUSCULOSKELETAL: No cyanosis. obese BL LE. no pitting edema BACK: Nontender without obvious deformity. No CVA tenderness. A/P Assessment and Plan //Atrial fibrillation -Echocardiogram pending. On amiodarone loading as per cardiology. Continue metoprolol. Continue aspirin as per cardiology. Much improved on treatment. Management as per cardiology. Appreciate assistance -Possible cath, stress test prior to afib ablation. as per cards. //Thrombocytopenia. Platelets 109 on admission. This appears to be chronic since 2011. No bleeding. stable. cont to Monitor. //Anemia. Hemoglobin 10.8 on admission. 12.6 at baseline. No bleeding. Monitor. Follow-up outpatient //Hypernatremia //Non-anion Gap metabolic acidosis. Likely artifactual secondary to normal saline. improving. cont half-normal saline. //Prophylaxis. SCDs. Anticoagulation as per cardiology. Discharge Planning When cleared by cardiology Amador Hilliard MD Jul 17, 2016 15:20
--- NOTE | 2016-07-17 18:01 | HHI.PR ---
Subjective Remarks Patient seen today around 2 PM. Patient says she feels well. Denies any chest pain or shortness breath. Denies any palpitations. patient has been walking around without difficulty. Says she will feel comfortable going home tomorrow. Discussed with nursing. Heart rate stable in the 80s. Waiting for second part of perfusion scan to be completed tomorrow. Objective Vital Signs Date Time Temp Pulse Resp B/P Pulse Ox O2 Delivery O2 Flow Rate FiO2 07/17/16 16:00 98.5 81 20 127/66 96 07/17/16 14:00 80 07/17/16 13:00 67 07/17/16 12:17 98.0 79 18 98 07/17/16 12:16 80 07/17/16 10:00 91 Room Air 07/17/16 08:01 72 18 139/78 97 07/17/16 08:00 92 Nasal Cannula 2.00 07/17/16 07:00 94 07/17/16 07:00 90 07/17/16 06:00 66 07/17/16 05:00 70 07/17/16 04:00 72 07/17/16 04:00 98.2 79 18 117/64 95 07/17/16 03:00 66 07/17/16 02:00 68 07/17/16 01:00 72 07/17/16 00:00 97.2 72 18 124/69 94 07/17/16 00:00 72 07/16/16 23:00 72 07/16/16 22:00 92 07/16/16 20:00 82 07/16/16 19:00 84 07/16/16 19:00 98.3 88 16 124/76 94 07/16/16 18:00 90 I/O 07/16/16 07/16/16 07/16/16 07/17/16 07/17/16 07/17/16 07:00 15:00 23:00 07:00 15:00 23:00 Intake Total 120 ml 1104 ml 480 ml Output Total 450 ml 850 ml Balance -330 ml 1104 ml -370 ml Intake Oral 120 ml 520 ml 480 ml IV Total 584 ml Output Urine Total 450 ml 850 ml # Voids 5 # Bowel Movements 1 Result Diagram: 07/17/16 0515 07/17/1615 Objective Remarks GENERAL: obese. lying in bed. appears comfortable. AAOx3. Exam unchanged SKIN: Warm and dry. HEAD: Normocephalic. EYES: No scleral icterus. No injection or drainage. NECK: Supple, trachea midline. No JVD. CARDIOVASCULAR: Regular rate and rhythm without murmurs, gallops, or rubs. RESPIRATORY: Breath sounds equal bilaterally. No accessory muscle use. GASTROINTESTINAL: Abdomen soft, non-tender, nondistended. MUSCULOSKELETAL: No cyanosis. obese BL LE. no pitting edema BACK: Nontender without obvious deformity. No CVA tenderness. A/P Assessment and Plan //Atrial fibrillation -Echocardiogram pending. On amiodarone loading as per cardiology. Continue metoprolol. Continue aspirin as per cardiology. Much improved on treatment. Management as per cardiology. Appreciate assistance -Status post first part of nuclear perfusion scan today. Second part tomorrow, after which patient can likely be discharged home with follow-up cardiology. //Thrombocytopenia. Platelets 109 on admission. This appears to be chronic since 2011. No bleeding. stable. cont to Monitor. //Anemia. Hemoglobin 10.8 on admission. 12.6 at baseline. No bleeding. Monitor. Stable. Follow-up outpatient //Hypernatremia //Non-anion Gap metabolic acidosis. Likely artifactual secondary to normal saline. improving. cont half-normal saline. Switch to quarter normal saline. //Transaminitis. Mild. Ultrasound shows fatty infiltration of liver. This is likely MULLINS -Hepatitis testing negative. Recommend weight loss. Patient will need to follow-up with primary care.- //Prophylaxis. SCDs. Anticoagulation as per cardiology. Discharge Planning When cleared by cardiology Amador Hilliard MD Jul 17, 2016 18:00
[2016-07-17] MEDS: SODIUM CHLORIDE 23.4% INJ 38.5 MEQ in WATER STERILE FOR INJ 1,000 ML IV SCH (19:00)
[2016-07-17] MEDS: ACETAMINOPHEN/HYDROcodone 325 MG/5 MG TAB PO PRN (21:00)
[2016-07-18] VITALS: BP 110/56; PULSE 74; RESP 20; TEMP 98; O2SAT 93
[2016-07-18 04:00] VITALS: BP 97/50; PULSE 75; RESP 20; TEMP 97.7; O2SAT 94
[2016-07-18 08:10] VITALS: BP 108/57; PULSE 69; RESP 16; TEMP 97.7; O2SAT 95
[2016-07-18 08:28] LABS: BICARBONATE 27.9 MEQ/L (21.0-32.0); POTASSIUM 3.7 MEQ/L (3.5-5.1)
[2016-07-18] MEDS: METOPROLOL TARTRATE 50 MG TAB PO SCH (09:00)
[2016-07-18] MEDS: APIXABAN 5 MG TABLET PO SCH (09:02)
[2016-07-18] MEDS: SODIUM CHLORIDE 0.9% FLUSH 5 ML FLUSH FLUSH SCH (09:03)
[2016-07-18] MEDS: SODIUM CHLORIDE 23.4% INJ 38.5 MEQ in WATER STERILE FOR INJ 1,000 ML IV SCH (09:05)
[2016-07-18 10:00] VITALS: BP 149/73; PULSE 85; RESP 16; TEMP 97.9; O2SAT 95
[2016-07-18] MEDS: ACETAMINOPHEN/HYDROcodone 325 MG/5 MG TAB PO PRN (12:08)
--- NOTE | 2016-07-18 12:35 | RADRPT ---
EXAM DATE/TIME: 07/17/2016 09:52 [facility] COMPARISON: No previous studies available for comparison. INDICATIONS : Patient with multiple episodes of atrial fibrillation with RVR. Atrial fibrillation. DOSE: 31 mCi Tc99m Myoview at stress. 31.7 mCi Tc99m Myoview at rest. 0.4 mg Lexiscan STRESS SYMPTOMS: Dyspnea, nausea, headache and dizziness. EJECTION FRACTION: 64% MEDICAL HISTORY : Hypertension. SURGICAL HISTORY : Cholecystectomy. Tonsillectomy. Knee surgery. ENCOUNTER: Subsequent ACUITY: 2 months PAIN SCALE: 0/10 LOCATION: Substernal chest TECHNIQUE: The patient underwent pharmacologic stress with infusion of prescribed dose. Continuous ECG tracing was monitored during stress. Gated SPECT imaging was performed after stress and conventional SPECT i maging was performed at rest. The examination was performed on a SPECT/CT scanner, both attenuation and non-corrected datasets were reviewed. FINDINGS: DISTRIBUTION: The maximum perfused segment at stress is in the lateral wall. PERFUSION STUDY: The pattern of perfusion at stress is within normal limits. GATED STUDY: There is intact wall motion and thickening without hypokinetic or dyskinetic segments. CONCLUSION: 1. No significant reversibility to suggest ischemia. 2. Normal wall motion with ejection fraction 64%. RISK CATEGORY: Low (<1% Annual Mortality Rate) Torres Champion MD on July 18, 2016 at 12:28 Board Certified Radiologist. This report was verified electronically.
[2016-07-18] MEDS ORDERED: METO-309 PO (12:54)
[2016-07-18] MEDS ORDERED: APIX5TAB PO (12:54)
--- NOTE | 2016-07-18 12:59 | HHI.DS ---
Discharge Summary Admission Date Jul 15, 2016 at 06:58 Discharge Date: Jul 18, 2016 Admitting Diagnosis atrial fibrillation with RVR (1) Paroxysmal atrial fibrillation with RVR ICD Code: I48.0 (2) Morbid obesity ICD Code: 278.01 (3) MULLINS (nonalcoholic steatohepatitis) ICD Code: K75.81 Procedures Stress test Brief History - From Admission Patient is a pleasant 61-year-old female with a history of atrial fibrillation, hypertension, chronic osteoarthritic pain, who presents with palpitations, sensation of "racing heartbeat", which started on 07/14 around 3:30 PM, and has been intermittent since that time. She did take metoprolol when this started initially, and did help for a while, however she woke up in the middle of the night with palpitations, heart pounding. She denies any chest pain or shortness of breath. Patient was started on amiodarone loading in the ER, and heart rate is currently controlled. She says she currently feels great. She denies any recent fevers, chills. Denies any recent medication changes. He states that prior to her palpitations starting yesterday, she felt fine. Patient does have chronic bilateral lower extremity edema, which is calm. By obesity. She says that this waxes and wanes, has not changed significantly recently. CBC/BMP: 07/17/16 0515 07/18/16 0726 Significant Findings Laboratory Tests Test 07/15/16 07/16/16 07/17/16 07/18/16 13:23 05:35 05:15 07:26 Sodium Level 148 MEQ/L 146 MEQ/L (136-145) (136-145) Chloride Level 116 MEQ/L 113 MEQ/L 112 MEQ/L 111 MEQ/L (98-107) (98-107) (98-107) (98-107) Blood Urea Nitrogen 19 MG/DL (7-18) Estimat Glomerular Filtration 68 ML/MIN (>89) 60 ML/MIN (>89) 72 ML/MIN (>89) 71 ML/MIN (>89) Rate Calcium Level 8.2 MG/DL 8.0 MG/DL 8.1 MG/DL 8.2 MG/DL (8.5-10.1) (8.5-10.1) (8.5-10.1) (8.5-10.1) Red Blood Count 3.41 MIL/MM3 3.34 MIL/MM3 (4.00-5.30) (4.00-5.30) Hemoglobin 10.2 GM/DL 10.2 GM/DL (11.6-15.3) (11.6-15.3) Hematocrit 31.7 % 30.5 % (35.0-46.0) (35.0-46.0) Platelet Count 101 TH/MM3 99 TH/MM3 (150-450) (150-450) Potassium Level 3.4 MEQ/L (3.5-5.1) Aspartate Amino Transf 53 U/L (15-37) (AST/SGOT) Alanine Aminotransferase 62 U/L (10-53) (ALT/SGPT) Alkaline Phosphatase 148 U/L (45-117) Total Protein 6.1 GM/DL (6.4-8.2) Albumin 3.2 GM/DL (3.4-5.0) Monocytes (%) (Auto) 9.0 % (0.0-8.0) Platelet Estimate LOW (NORMAL) Hospital Course 61 years old female admitted with Atrial fibrillation with RVR Cardiology consulted,. Started on amiodarone loading as per cardiology. Then Continue metoprolol. Stop aspirin replace with elliquis, Heart rate improved, nuclear perfusion scan was unremarkable with ejection fraction 64%, Patient had Thrombocytopenia. Platelets 109 on admission. This appears to be chronic since 2011. No bleeding. stable. cont to Monitor. Anemia. Hemoglobin 10.8 on admission. 12.6 at baseline. No bleeding. Monitor. Stable. Follow-up outpatient Hypernatremia improved on iv fluid Transaminitis. Mild. Ultrasound shows fatty infiltration of liver. This is likely MULLINS, Hepatitis testing negative., Recommend weight loss. Patient will need to follow-up with primary care.- //Prophylaxis. SCDs. Anticoagulation as per cardiology. Pt Condition on Discharge: Fair Discharge Disposition: Discharge Home Discharge Time: <= 30 minutes Discharge Instructions DIET: Follow Instructions for: Heart Healthy Diet Activities you can perform: Weight Bearing as Arabella New Medications: Apixaban (Eliquis) 5 Mg Tab 5 MG PO BID A. fib #30 TAB Metoprolol Tartrate (Lopressor) 50 Mg Tab 50 MG PO Q12HR A. fib #60 TAB Continued Medications: Multiple Vitamin (Multiple Vitamin) 1 Tab 1 TAB PO DAILY Nutritional Supplement Ref 0 TAB Floyd Mariano MD Jul 18, 2016 12:59
== END 2016-07-18 16:08 | disposition home or self-care (01) | DRG 309 ==
LOC: NEPE 04:32 → NEDA 06:58 → HCIS 12:25 → N04A 07-17 16:35
PROVIDERS: ADMIT Hospitalist; ATTEND Hospitalist
DX: I48.0 Paroxysmal atrial fibrillation (principal); E87.0 Hyperosmolality and hypernatremia; E87.2 Acidosis; Z68.42 Body mass index [BMI] 45.0-49.9, adult; D69.6 Thrombocytopenia, unspecified; K75.81 Nonalcoholic steatohepatitis (NASH); E66.01 Morbid (severe) obesity due to excess calories; D64.9 Anemia, unspecified; I48.2 Chronic atrial fibrillation; R60.0 Localized edema
CPT/HCPCS: 71010; 76705; 76937; 78452; 80048; 80053; 80074; 82550; 83735; 83880; 84443; 84484; 85025; 85610; 85730; 93005; 93017; 96365; A9502; J0282; J0610; J2785; J7030; J7060

== ENCOUNTER 2016-08-13 14:03 | Day surgery (SDC) | payer BC ==
[~2016-08-13] VITALS: Ht 157.5 cm; Wt 127.6 kg
[~2016-08-13 14:03] MED LIST changes: +APIX5TAB PO; +EYECAP PO; +METO-309 PO; +MULTTAB67 PO
[2016-08-13] MEDS ORDERED: INSULIN HUMAN REGULAR 1,000 UNITS/10 ML VIAL SQ PRN (14:45)
[2016-08-13] MEDS ORDERED: METOPROLOL TARTRATE 25 MG TAB PO PRN (14:45)
[2016-08-13] MEDS ORDERED: SODIUM CHLORID 0.9% 500 ML IV SCH (14:45)
[2016-08-13] MEDS ORDERED: LACTATED RINGER'S 1000 ML IV SCH (14:45)
[2016-08-13 15:25] VITALS: BP 107/57; PULSE 72; RESP 18; TEMP 96.9; O2SAT 100
[2016-08-13] MEDS ORDERED: VITA100T15 PO (15:38)
[2016-08-13] MEDS ORDERED: FURO1TAB60 PO (15:38)
[2016-08-13] MEDS ORDERED: LORA10TA PO (15:38)
[2016-08-13] MEDS ORDERED: OMEGCAP PO (15:38)
[2016-08-13] MEDS ORDERED: IRON18TA2 PO (15:38)
[2016-08-13] MEDS ORDERED: VITA8000 PO (15:38)
[2016-08-13] MEDS ORDERED: VITA250T3 PO (15:38)
[2016-08-13] MEDS ORDERED: CALC500C2 CHEW (15:38)
[2016-08-13 15:49] LABS: AUTOMATED NEUTROPHIL # 5.3 TH/MM3 (1.8-7.7); BASOPHIL # 0.1 TH/MM3 (0-0.2); BASOPHIL % 0.8 % (0.0-2.0); EOSINOPHIL # 0.1 TH/MM3 (0-0.4); EOSINOPHIL % 1.9 % (0.0-4.0); HEMATOCRIT 39.5 % (35.0-46.0); HEMO FLAGS DIFF FINAL; LYMPH % 16.8 % (9.0-44.0); LYMPHOCYTE # 1.2 TH/MM3 (1.0-4.8); MEAN CELL VOLUME 91.3 FL (80.0-100.0); MEAN CORPUSCULAR HEMOGLOBIN 29.3 PG (27.0-34.0); MEAN CORPUSCULAR HGB CONC 32.1 % (32.0-36.0); NEUT % 74.5 % (16.0-70.0); PLATELET COUNT 132 TH/MM3 (150-450); RED BLOOD COUNT 4.33 MIL/MM3 (4.00-5.30); RED CELL DISTRIBUTION WIDTH 15.6 % (11.6-17.2); WHITE BLOOD COUNT 7.2 TH/MM3 (4.0-11.0)
[2016-08-13 15:51] LABS: APTT (PATIENT) 25.9 SEC (24.3-30.1); INTERNATIONAL NORMALIZED RATIO 0.9 RATIO; PROTHROMBIN TIME - PATIENT 9.8 SEC (9.8-11.6)
[2016-08-13 16:07] LABS: BICARBONATE 21.8 MEQ/L (21.0-32.0); POTASSIUM 4.1 MEQ/L (3.5-5.1)
[2016-08-13] MEDS ORDERED: LEVOFLOXACIN 500 MG PREMIX INJ 100 ML IV ONE (16:15)
[2016-08-13] MEDS ORDERED: LEVOFLOXACIN 500 MG PREMIX INJ 100 ML IV SCH (16:30)
[2016-08-13] MEDS ORDERED: PROPOFOL 200 MG/20 ML AMP IV ONE (16:53)
[2016-08-13] MEDS ORDERED: HEPARIN-NS/PF INJ 500 ML ONE (17:19)
[2016-08-13] MEDS ORDERED: PROTAMINE SULFATE 50 MG/5 ML VIAL ONE (18:01)
[2016-08-13] MEDS ORDERED: ISOPROTERENOL HCL 1 MG/5 ML AMP ONE (18:01)
[2016-08-13] MEDS ORDERED: HEPARIN SODIUM - IV 10,000 UNITS/10 ML VIAL ONE ×2 (18:02)
[2016-08-13] MEDS ORDERED: HEPARIN-D5W INJ 250 ML ONE (18:48)
[2016-08-13] MEDS ORDERED: BACITRACIN OINT 0.9 GM PKT TOP ONE (20:30)
[2016-08-13] MEDS ORDERED: METOCLOPRAMIDE HCL 10 MG/2 ML VIAL IV PRN (20:30)
[2016-08-13] MEDS ORDERED: oxyCODONE/ACETAMINOPHEN 5 MG/325 MG TAB PO PRN ×2 (20:30)
[2016-08-13] MEDS ORDERED: ONDANSETRON HCL 4 MG/2 ML VIAL IV PRN (20:30)
[2016-08-13] MEDS ORDERED: SODIUM CHLOR 0.9% 250 ML INJ 250 ML IV PRN (20:30)
[2016-08-13] MEDS ORDERED: LORazepam 2 MG/ML VIAL IV PRN (20:30)
[2016-08-13] MEDS ORDERED: ATROPINE SULFATE 1 MG/ML VIAL IV PRN (20:30)
[2016-08-13] MEDS ORDERED: LIDOCAINE HCL 1% 50 ML VIAL INFIL PRN (20:30)
[2016-08-13] MEDS ORDERED: fentaNYL CITRATE 250 MCG/5 ML AMP ONE (21:04)
[2016-08-13] MEDS ORDERED: DO NOT ADM ANY ANTICOAGULANT DRUGS XX PRN (21:30)
[2016-08-13 23:00] VITALS: BP 109/71; PULSE 94; PULSE 96; RESP 22; TEMP 97.7; O2SAT 99
[2016-08-13] MEDS: METOPROLOL TARTRATE 50 MG TAB PO SCH (23:13)
[2016-08-13] MEDS: APIXABAN 5 MG TABLET PO SCH (23:29)
[2016-08-14] VITALS (12 sets, daily range): BP systolic 100–108; BP diastolic 56–62; PULSE 76–88; RESP 16–22; TEMP 97.5–97.9; O2SAT 92–100
[2016-08-14 06:19] LABS: PROTHROMBIN TIME - PATIENT 11.6 SEC (9.8-11.6)
[2016-08-14] MEDS ORDERED: NON-FORMULARY DRUG (Fish Oil-Cholecalciferol (Omega-3 Fish Oil/Vitamin) 1 CAP) PO SCH (09:00)
[2016-08-14] MEDS: METOPROLOL TARTRATE 50 MG TAB PO SCH (09:00)
[2016-08-14] MEDS ORDERED: LORATADINE 10 MG TAB PO SCH (09:00)
[2016-08-14] MEDS: APIXABAN 5 MG TABLET PO SCH (09:16)
--- NOTE | 2016-08-14 14:24 | EKG ---
Date Performed: 08/13/2016 Time Performed: 16:16:12 PTAGE: 61 years EKG: Sinus rhythm Compared to the previous tracing, sinus rhythm has replaced atrial fibrillation Normal ECG PREVIOUS TRACING : 07/15/2016 04.43 DOCTOR: Dutch Mcclendon Interpretating Date/Time 08/14/2016 14:24:10
--- NOTE | 2016-08-14 15:13 | PD.CARD.PN ---
Subjective Subjective Remarks Feels good. Objective Vital Signs / I&O Vital Signs Date Time Temp Pulse Resp B/P Pulse Ox O2 Delivery O2 Flow Rate FiO2 08/14/16 10:00 86 08/14/16 09:00 88 08/14/16 08:00 97.7 83 18 100/56 98 08/14/16 08:00 78 08/14/16 07:30 97.7 82 16 108/62 92 08/14/16 07:00 79 08/14/16 06:00 76 08/14/16 05:00 78 08/14/16 04:00 97.9 80 22 108/62 98 08/14/16 04:00 76 08/14/16 03:00 77 08/14/16 02:00 88 08/14/16 01:00 97.5 81 22 100/60 100 08/14/16 01:00 76 08/14/16 00:00 78 08/13/16 23:00 96 08/13/16 23:00 97.7 94 22 109/71 99 08/13/16 21:30 98.5 94 14 131/75 97 Nasal Cannula 2 08/13/16 21:15 92 14 129/76 98 Nasal Cannula 2 08/13/16 21:00 93 14 142/81 99 Nasal Cannula 2 08/13/16 20:53 98.4 96 14 130/70 99 Nasal Cannula 2 08/13/16 15:25 96.9 72 18 107/57 100 I/O 08/13/16 08/13/16 08/13/16 08/14/16 08/14/16 08/14/16 07:00 15:00 23:00 07:00 15:00 23:00 Intake Total 2450 ml 720 ml Output Total 810 ml 1050 ml Balance 1640 ml -330 ml Intake Oral 720 ml IV Total 1250 ml Other 1200 ml Output Urine Total 800 ml 1050 ml Estimated Blood Loss 10 ml Physical Exam GENERAL: Well-nourished, well-developed patient. SKIN: Warm and dry. Groin sites soft with no erythema or bleeding. HEAD: Normocephalic. EYES: No scleral icterus. No injection or drainage. NECK: Supple, trachea midline. No JVD or lymphadenopathy. CARDIOVASCULAR: Regular rate and rhythm without murmurs, gallops, or rubs. RESPIRATORY: Breath sounds equal bilaterally. No accessory muscle use. GASTROINTESTINAL: Abdomen soft, obese, non-tender, nondistended. EXTREMITIES: No cyanosis, or edema. NEUROLOGICAL: Awake, alert, and oriented x 3. Non-focal. Laboratory Laboratory Tests Test 08/13/16 08/13/16 08/14/16 15:18 15:58 05:48 Sodium Level 144 MEQ/L Potassium Level 4.1 MEQ/L Chloride Level 112 MEQ/L Carbon Dioxide Level 21.8 MEQ/L Anion Gap 10 MEQ/L Blood Urea Nitrogen 23 MG/DL Creatinine 0.99 MG/DL Estimat Glomerular Filtration 57 ML/MIN Rate Random Glucose 89 MG/DL Calcium Level 8.3 MG/DL Blood Type O NEGATIVE Antibody Screen NEGATIVE Blood Bank Comment Prothrombin Time 11.6 SEC Prothromb Time International 1.0 RATIO Ratio Activated Partial 27.0 SEC Thromboplast Time Assessment and Plan Problem List: (1) Paroxysmal atrial fibrillation Assessment and Plan: NSR on tele this a.m. s/p ablation of afib. (2) S/P ablation of atrial fibrillation Assessment and Plan: Stable for d/c home. Continue Eliquis, f/u with Dr. Valente in 3 weeks. Post op instructions given to pt. All questions answered. Discussed Condition With D/W pt., RN, Imani Mullen Aug 14, 2016 15:13
--- NOTE | 2016-08-20 15:02 | EKG ---
Date Performed: 08/13/2016 Time Performed: 23:01:18 PTAGE: 61 years EKG: Sinus rhythm Inferior T wave changes are nonspecific Borderline ECG PREVIOUS TRACING : 08/13/2016 16.16 DOCTOR: Presley De Dios Interpretating Date/Time 08/20/2016 15:01:06
--- NOTE | 2016-08-20 15:02 | EKG ---
Date Performed: 08/14/2016 Time Performed: 04:53:24 PTAGE: 61 years EKG: Sinus rhythm Normal ECG PREVIOUS TRACING : 08/13/2016 23.01 DOCTOR: Presley De Dios Interpretating Date/Time 08/20/2016 15:00:54
--- NOTE | 2016-09-10 10:04 | PD.CARD ---
Atrial Fibrillation Cryo Study PROCEDURE DATE: Aug 13, 2016 PROCEDURE PERFORMED Electrophysiology study, CS cannulation, 3-D mapping, transeptal approach, right and left heart catheterization, cryoablation and RF ablation of atrial fibrillation, pulmonary vein isolation, posterior ablation, anterior ablation, repeat electrophysiology study on Isuprel infusion, intracardiac echo. Very complex case. INDICATIONS FOR PROCEDURE Ms. Gamez is a 61-year-old female with atrial fibrillation, on multiple medications, symptomatic, on anticoagulation, referred for electrophysiology study and ablation. The risks, the nature and the benefit of the procedure are clearly stated to her. The risks include pneumothorax, cardiac perforation, stroke, need for open heart surgery and even . The patient understood and agreed to proceed. PROCEDURE As written informed consent was obtained prior to esophageal echo, the patient was kept on the table where she was prepped and draped in the usual sterile fashion. Conscious sedation was initiated and throughout the procedure by the anesthesiologist. Once sedation was verified, the right and left inguinal area was anesthetized with 2% Xylocaine. Using modified Seldinger technique, the left femoral vein was cannulated on three occasions and three guidewires were advanced over the wire, one 6, one 7, and one 10-Turkmen Hemaquet were advanced. Then the left femoral artery was done on one occasion, one guidewire was advanced over the wire. A 4-Turkmen Hemaquet was advanced. Then the right femoral vein was cannulated on one occasion and one guidewire was advanced over the wire. An 8-Turkmen Hemaquet was advanced. Then under fluoroscopic guidance through the 6 and 7-Turkmen Hemaquet, two 5- Turkmen Shaneka curved quadripolar electrophysiology catheters were advanced and positioned on the His as well as coronary sinus. The patient was in sinus rhythm. Basic interval was measured. They were all within normal limits. Then through the 10-Turkmen Hemaquet, a Lignol-Edmonds AcuNav intracardiac echo catheter was advanced and placed at the right atrium. Multiple views were obtained. There was no pericardial effusion. Pulmonary vein was seen. The atrial septum was visualized. Then the 8-Turkmen Hemaquet in the right femoral vein was exchanged for an Agilis transseptal sheath that was placed all the way to the superior vena cava. Through this sheath a [place] needle was advanced. Then the sheath, the dilator and the needle were pulled back progressively until foci engaged. Once the needle was advanced, RF was delivered for 2 seconds. I was able to cross into the left atrium. Once the needle was crossed, the dilator was advanced. Once the dilator was crossed, the sheath was advanced. Once the sheath crossed , the dilator and needle were removed. An intracardiac echo showed the sheath in good position. The patient already received 10,000 units of heparin. The goal is to get an ACT around 350 during the ablation. Through this sheath a [place] Gu[place]man 20-pole circumferential catheter was advanced. Using TripChamp endocardial solution mapping system a three-dimensional configuration of the left atrium was obtained. Points were taken at the left superior and inferior vein, right superior and inferior vein, mitral valve, and appendage. Then at this point I decided to proceed with cryoablation. The circumferential catheter was removed. Through the sheath a 0.035 wire was advanced. I did exchange the Agilis sheath for a TuTandatronic flex sheath. I decided to use a 28mm balloon. The balloon was advanced over the wire. First I did engage the left superior vein. The balloon was inflated, complete occlusion obtained. CryoEnergy was delivered for 3 and 3 minutes. Temperature reached -48. Then I did engage the left inferior vein, occlusion obtained. Venography showed complete occlusion and CryoEnergy was delivered for 4 and 4 minutes. Temperature was around -44 to -46. Then the right inferior was engaged, complete occlusion obtained. Temperature reach -44 for 3 and 3 minutes. Then the right superior was engaged. Before CryoEnergy of the right veins, the His catheter was placed at the left and the right subclavian. Phrenic nerve pacing was performed. There was diaphragmatic stimulation. That is going to be used for phrenic nerve monitoring during cryoablation. I did cryoablate the right superior vein. There was no loss of phrenic nerve movement , diaphragmatic movement. Phrenic nerve was intact. The temperature dropped to -48 for 3 and 3 minutes. At that point I removed the balloon. The circumferential catheter was advanced into the veins. At this point I realized there is still signal in the left superior and right superior vein. There is still signal on each side and the border of the right superior vein. After multiple the pacing and evaluation, I decided to proceed with RF ablation of the vein. Esophageal was placed before ablation for comparative monitoring during the cryo and the RF ablation. Through the sheath, I advanced a [place]. Guzman TactiCath 65cm, 3.5mm irrigated tip mapping radiofrequency ablation catheter, the radiofrequency mapping and radiofrequency ablation catheter from [employer]. Guz[place]. First I did isolate the left superior. Part of the posterior ablated. I did ablate the teresita. Then I did proceed with isolation of the right superior and I did ablate the anterior and posterior parts of the right superior. Then the circumferential catheter was advanced into the veins. Pacing from the vein showed no conduction to the atrium. Pacing from the atrium showed no conduction to the veins. The patient at this point received Isuprel infusion for around over 10 minutes at 20mcg. No tachyarrhythmia was induced, no conduction resumed. Post-Isuprel no conduction resumed either. At that point the procedure was complete. All catheters were removed, the transeptal sheath was exchanged for a 12-Turkmen Hemaquet. Intracardiac echo showed pericardial effusion, still good flow in the pulmonary vein. No incident reported. The patient tolerated the procedure. Blood loss minimal. 1. Electrocardiogram: At baseline the patient was in sinus. Postprocedure the patient in sinus. 2. Basic Interval: Base cycle length was around 780 milliseconds. AH 80. HV 54 3. Tachyarrhythmia: Atrial fibrillation was mapped and ablated. Ablation was successful. CONCLUSION Successful electrophysiology study, mapping and radiofrequency ablation of atrial fibrillation, pulmonary vein isolation, posterior and anterior wall ablation, repeat electrophysiology study on Isuprel infusion. COMMENT AND RECOMMENDATIONS The patient is going to be transferred to the telemetry unit, will be observed, and when stable can be discharged home. Makayla Valente MD Sep 10, 2016 10:04
--- NOTE | 2016-10-20 15:17 | ETE ---
Study Study Date:08/13/2016 STUDY CONCLUSIONS SUMMARY - Left ventricle: The cavity size was normal. Wall thickness was normal. Systolic function was normal. The estimated ejection fraction was in the range of 60% to 65%. Wall motion was normal; there were no regional wall motion abnormalities. - Aortic valve: No evidence of vegetation. - Mitral valve: No evidence of vegetation. Mild to moderate regurgitation. - Left atrium: The atrium was mildly dilated. No evidence of thrombus in the atrial cavity or appendage. No evidence of thrombus in the atrial cavity or appendage. No evidence of thrombus in the atrial cavity or appendage. - Right atrium: No evidence of thrombus in the atrial cavity or appendage. - Atrial septum: No defect or patent foramen ovale was identified. Echo contrast study showed no lnnut-wm-fbyr atrial level shunt , at baseline or with provocation. - Tricuspid valve: No evidence of vegetation. - Pulmonic valve: No evidence of vegetation. If LV function is below 40, please consider prescribing an ACEI or ARB or document rationale for non-use. PROCEDURE DATA Consent: The risks, benefits, and alternatives to the procedure were explained to the patient and informed consent was obtained. Procedure: Initial setup. The patient was brought to the laboratory in the fasting state. Intravenous access was obtained. Surface ECG leads and pulse oximetric signals were monitored. Sedation. Conscious sedation was administered by anesthesiology. Transesophageal echocardiography. Topical anesthesia was obtained using viscous lidocaine. A transesophageal probe was inserted by the attending brine maker. Image quality was good. Study completion: All IVs inserted during the procedure were removed. The patient tolerated the procedure well. There were no complications. Transesophageal echocardiography. 2D, complete spectral Doppler, and color Doppler. CARDIAC ANATOMY LEFT VENTRICLE: The cavity size was normal. Wall thickness was normal. Systolic function was normal. The estimated ejection fraction was in the range of 60% to 65%. Wall motion was normal; there were no regional wall motion abnormalities. AORTIC VALVE: Trileaflet; mildly thickened leaflets. Cusp separation was normal. No evidence of vegetation. Doppler: No significant regurgitation. Aorta: - There was no atheroma. There was no evidence for dissection. Aortic root: The aortic root was not dilated. Ascending aorta: The ascending aorta was normal in size. Aortic arch: The aortic arch was normal in size. Descending aorta: The descending aorta was normal in size. MITRAL VALVE: Structurally normal valve. Leaflet separation was normal. No evidence of vegetation. Doppler: Mild to moderate regurgitation. LEFT ATRIUM: The atrium was mildly dilated. No evidence of thrombus in the atrial cavity or appendage. No evidence of thrombus in the atrial cavity or appendage. No evidence of thrombus in the atrial cavity or appendage. The appendage was morphologically a left appendage, multilobulated, and of normal size. Emptying velocity was normal. ATRIAL SEPTUM: No defect or patent foramen ovale was identified. Echo contrast study showed no qgwpk-sn-dzne atrial level shunt, at baseline or with provocation. RIGHT VENTRICLE: The cavity size was normal. Wall thickness was normal. Systolic function was normal. PULMONIC VALVE: Structurally normal valve. No evidence of vegetation. TRICUSPID VALVE: Structurally normal valve. Leaflet separation was normal. No evidence of vegetation. Doppler: Trace regurgitation. PULMONARY ARTERY: The main pulmonary artery was normal-sized. RIGHT ATRIUM: The atrium was normal in size. No evidence of thrombus in the atrial cavity or appendage. The appendage was morphologically a right appendage. PERICARDIUM: There was no pericardial effusion. Prepared and signed by Makayla Valente [id number]
== END 2016-08-14 10:28 | disposition home or self-care (01) ==
LOC: HDOC 14:03 → HDIC 14:04 → HCIS 22:14 → HDOC 08-14 10:28
PROVIDERS: ATTEND Internal Medicine Interventional Cardiology
DX: I48.91 Unspecified atrial fibrillation (principal); I47.1 Supraventricular tachycardia; I10 Essential (primary) hypertension; E66.01 Morbid (severe) obesity due to excess calories; Z68.43 Body mass index [BMI] 50.0-59.9, adult; Z79.01 Long term (current) use of anticoagulants
CPT/HCPCS: 00537; 76937; 80048; 85002; 85025; 85610; 85730; 86850; 86900; 86901; 93005; 93312; 93320; 93325; 93613; 93623; 93656; 93662; C1730; C1731; C1732; C1733; C1759; C1766; C2630; J1644; J1956; J2720; J3010

== ENCOUNTER 2017-06-02 10:18 | Emergency (ER) | payer BC ==
[~2017-06-02] VITALS: Ht 160 cm; Wt 125.0 kg
[~2017-06-02 10:18] MED LIST changes: -ASPI325T PO; +CALC500C2 CHEW; +CYAN100 PO; +IRON18TA2 PO; +LORA10TA PO; -METO50TA11 PO; +OMEGCAP PO; +VITA250T3 PO; +VITA8000 PO
[2017-06-02 10:21] VITALS: BP 94/54; PULSE 77; RESP 20; TEMP 97.6; O2SAT 96
[2017-06-02 10:32] VITALS: BP 92/54; PULSE 67; RESP 18; O2SAT 97
[2017-06-02 10:51] LABS: AUTOMATED NEUTROPHIL # 5.2 TH/MM3 (1.8-7.7); BASOPHIL # 0.1 TH/MM3 (0-0.2); BASOPHIL % 1.1 % (0.0-2.0); EOSINOPHIL # 0.1 TH/MM3 (0-0.4); EOSINOPHIL % 1.2 % (0.0-4.0); HEMATOCRIT 41.3 % (35.0-46.0); HEMOGLOBIN 13.4 GM/DL (11.6-15.3); LYMPH % 14.3 % (9.0-44.0); LYMPHOCYTE # 0.9 TH/MM3 (1.0-4.8); MEAN CORPUSCULAR HEMOGLOBIN 30.1 PG (27.0-34.0); MEAN CORPUSCULAR HGB CONC 32.3 % (32.0-36.0); MEAN PLATELET VOLUME 9.8 FL (7.0-11.0); MONO % 4.5 % (0.0-8.0); MONOCYTE # 0.3 TH/MM3 (0-0.9); NEUT % 78.9 % (16.0-70.0); PLATELET COUNT 112 TH/MM3 (150-450); RED BLOOD COUNT 4.45 MIL/MM3 (4.00-5.30); RED CELL DISTRIBUTION WIDTH 14.6 % (11.6-17.2); WHITE BLOOD COUNT 6.6 TH/MM3 (4.0-11.0)
[2017-06-02 10:59] LABS: CHLORIDE 115 MEQ/L (98-107); SODIUM (NA) 144 MEQ/L (136-145)
[2017-06-02 11:02] LABS: BICARBONATE 18.9 MEQ/L (21.0-32.0); BLOOD UREA NITROGEN 15 MG/DL (7-18); CALCIUM 8.2 MG/DL (8.5-10.1); GLUCOSE,RANDOM 117 MG/DL (74-106)
--- NOTE | 2017-06-02 11:05 | PD ---
HPI Chief Complaint: Cardiac Complaint Time Seen by Provider: 10:53 Travel History International Travel<30 days: No Contact w/Intl Traveler<30days: No Traveled to known affect area: No History of Present Illness HPI The patient is a 62-year-old female who presents to the emergency department for palpitations. The patient has a history of atrial fibrillation with RVR and is followed by Dr. Valero and her carver hand, Dr. Valente. The patient underwent ablation for atrial fibrillation earlier this year was placed on Eliquis for 3 months. The patient was in a sinus rhythm and taken off of Eliquis. The patient awakened this morning to go to the bathroom when she noticed she was having palpitations and felt like her heart was "out of sync ". She did complain of mild shortness of breath and some diaphoresis, denied any chest pain, nausea, vomiting, or dizziness. The patient took a full- size aspirin and metoprolol 50 mg orally with back to bed. The patient then awakened once again at 9 AM and felt like her heart was racing, states her heart rate was elevated. The patient took another aspirin and metoprolol 50 mg orally. The patient then called EMS. When EMS arrived the patient's symptoms had resolved. She now denies any complaints including chest pain, shortness breath, nausea, vomiting, or lower extremity edema. The patient was followed at the [facility] at [facility], however, has not seen her primary physician in the last 2-3 years. PFSH Past Medical History Hx Anticoagulant Therapy: Yes Arthritis: Yes Atrial Fibrillation: Yes Heart Rhythm Problems: Yes (AFIB) Cancer: No Cardiovascular Problems: Yes High Cholesterol: No Chest Pain: No Congestive Heart Failure: No Developmental Delay: Yes Diabetes: No Diminished Hearing: No Endocrine: No Gastrointestinal Disorders: No Glaucoma: No Genitourinary: No Hepatitis: No Hiatal Hernia: No Hypertension: Yes Immune Disorder: No Musculoskeletal: Yes (arthritis both knees) Neurologic: No Psychiatric: No Reproductive: No Respiratory: No Integumentary: No Thyroid Disease: No Influenza Vaccination: Yes ?: Not Menopausal: Yes Past Surgical History Abdominal Surgery: Yes (epi-n-y gastric by-pass hernia repair with mesh) AICD: No Cardiac Surgery: Yes (ABLATION) Ear Surgery: No Endocrine Surgery: No Eye Surgery: Yes (lasik eye surgery) Genitourinary Surgery: No Gynecologic Surgery: No Joint Replacement: No Neurologic Surgery: No Oral Surgery: No Pacemaker: No Thoracic Surgery: Yes (breast reduction with extra fat tissue removed from arms ) Other Surgery: Yes (LEFT HAND) Social History Alcohol Use: Yes (3 DRINKS A MONTH) Tobacco Use: No Substance Use: No Allergies-Medications (Allergen,Severity, Reaction): Coded Allergies: No Known Allergies (Verified Adverse Reaction, Unknown, 06/02/17) Reported Meds & Prescriptions Reported Meds & Active Scripts Active Lopressor (Metoprolol Tartrate) 50 Mg Tab 50 Mg PO Q12HR Reported Vitamin B12 (Cyanocobalamin) 100 Mcg Tab Unknown Dose PO DAILY Calcium (Calcium Carbonate-Cholecalciferol) 1,250-100 Mg-Unit Chew 1 Tab CHEW DAILY Vitamin C (Ascorbic Acid) 250 Mg Tab Unknown Dose PO DAILY Lasix (Furosemide) 40 Mg Tab 40 Mg PO DIRECTED Thorpe-3 Fish Oil/Vitamin (Fish Oil-Cholecalciferol) 1,000-1,000 Mg Cap 1 Cap PO DAILY Multiple Vitamin 1 Tab 1 Tab PO DAILY Naprosyn (Naproxen) 500 Mg Tab 500 Mg PO BID Review of Systems Except as stated in HPI: all other systems reviewed are Neg General / Constitutional: No: Fever HENT: No: Lightheadedness Cardiovascular: Positive: Palpitations, Irregular Rhythm, Tachycardia, Diaphoresis, No: Chest Pain or Discomfort, Dyspnea on exertion Respiratory: Positive: Shortness of Breath Gastrointestinal: No: Nausea, Vomiting, Abdominal Pain Neurologic: No: Dizziness Physical Exam Narrative GENERAL: Awake, alert, pleasant dis-trzx-bzs female who appears her stated age and is in no acute respiratory distress. SKIN: Focused skin assessment warm/dry. HEAD: Atraumatic. Normocephalic. EYES: Pupils equal and round. No scleral icterus. No injection or drainage. ENT: No nasal bleeding or discharge. Mucous membranes pink and moist. NECK: Trachea midline. No JVD. CARDIOVASCULAR: Regular rate and rhythm. No murmur appreciated. Heart rate in the 60s. RESPIRATORY: No accessory muscle use. Clear to auscultation. Breath sounds equal bilaterally. GASTROINTESTINAL: Abdomen soft, non-tender, nondistended. No rebound tenderness. MUSCULOSKELETAL: No obvious deformities. No clubbing. No cyanosis. No edema. NEUROLOGICAL: Awake and alert. No obvious cranial nerve deficits. Motor grossly within normal limits. Normal speech. Nonfocal. Oriented 4. Follows commands without difficulty. PSYCHIATRIC: Appropriate mood and affect; insight and judgment normal. Data Data Last Documented VS Vital Signs Date Time Temp Pulse Resp B/P (MAP) Pulse Ox O2 Delivery O2 Flow Rate FiO2 06/02/17 11:41 76 18 91/58 (69) 98 06/02/17 10:32 Room Air 06/02/17 10:21 97.6 Orders Orders Electrocardiogram (06/02/17 10:23) Complete Blood Count With Diff (06/02/17 10:23) Basic Metabolic Panel (Bmp) (06/02/17 10:23) Ckmb (Isoenzyme) Profile (06/02/17 10:23) Troponin I (06/02/17 10:23) Chest, Single Ap (06/02/17 10:23) Iv Access Insert/Monitor (06/02/17 10:23) Ecg Monitoring (06/02/17 10:23) Oxygen Administration (06/02/17 10:23) Oximetry (06/02/17 10:23) CKMB (06/02/17 10:38) CKMB% (06/02/17 10:38) Labs Laboratory Tests Test 06/02/17 10:38 White Blood Count 6.6 TH/MM3 Red Blood Count 4.45 MIL/MM3 Hemoglobin 13.4 GM/DL Hematocrit 41.3 % Mean Corpuscular Volume 93.0 FL Mean Corpuscular Hemoglobin 30.1 PG Mean Corpuscular Hemoglobin Concent 32.3 % Red Cell Distribution Width 14.6 % Platelet Count 112 TH/MM3 Mean Platelet Volume 9.8 FL Neutrophils (%) (Auto) 78.9 % Lymphocytes (%) (Auto) 14.3 % Monocytes (%) (Auto) 4.5 % Eosinophils (%) (Auto) 1.2 % Basophils (%) (Auto) 1.1 % Neutrophils # (Auto) 5.2 TH/MM3 Lymphocytes # (Auto) 0.9 TH/MM3 Monocytes # (Auto) 0.3 TH/MM3 Eosinophils # (Auto) 0.1 TH/MM3 Basophils # (Auto) 0.1 TH/MM3 CBC Comment DIFF FINAL Differential Comment Blood Urea Nitrogen 15 MG/DL Creatinine 0.99 MG/DL Random Glucose 117 MG/DL Calcium Level 8.2 MG/DL Sodium Level 144 MEQ/L Potassium Level 4.8 MEQ/L Chloride Level 115 MEQ/L Carbon Dioxide Level 18.9 MEQ/L Anion Gap 10 MEQ/L Estimat Glomerular Filtration Rate 57 ML/MIN Total Creatine Kinase 102 U/L Creatine Kinase MB 1.6 NG/ML Troponin I LESS THAN 0.02 NG/ML MDM Medical Decision Making Medical Screen Exam Complete: Yes Emergency Medical Condition: Yes Medical Record Reviewed: Yes Interpretation(s) EKG reveals normal sinus rhythm with a rate of 68. Inverted T-wave noted in lead 3. Chest x-ray reveals cardiomegaly. No focal pulmonary infiltrate or pulmonary vascular congestion. Laboratory Tests Test 06/02/17 10:38 White Blood Count 6.6 TH/MM3 Red Blood Count 4.45 MIL/MM3 Hemoglobin 13.4 GM/DL Hematocrit 41.3 % Mean Corpuscular Volume 93.0 FL Mean Corpuscular Hemoglobin 30.1 PG Mean Corpuscular Hemoglobin Concent 32.3 % Red Cell Distribution Width 14.6 % Platelet Count 112 TH/MM3 Mean Platelet Volume 9.8 FL Neutrophils (%) (Auto) 78.9 % Lymphocytes (%) (Auto) 14.3 % Monocytes (%) (Auto) 4.5 % Eosinophils (%) (Auto) 1.2 % Basophils (%) (Auto) 1.1 % Neutrophils # (Auto) 5.2 TH/MM3 Lymphocytes # (Auto) 0.9 TH/MM3 Monocytes # (Auto) 0.3 TH/MM3 Eosinophils # (Auto) 0.1 TH/MM3 Basophils # (Auto) 0.1 TH/MM3 CBC Comment DIFF FINAL Differential Comment Blood Urea Nitrogen 15 MG/DL Creatinine 0.99 MG/DL Random Glucose 117 MG/DL Calcium Level 8.2 MG/DL Sodium Level 144 MEQ/L Potassium Level 4.8 MEQ/L Chloride Level 115 MEQ/L Carbon Dioxide Level 18.9 MEQ/L Anion Gap 10 MEQ/L Estimat Glomerular Filtration Rate 57 ML/MIN Total Creatine Kinase 102 U/L Troponin I LESS THAN 0.02 NG/ML Differential Diagnosis Differential diagnosis includes arrhythmia, age fibrillation with RVR, sinus tachycardia, electrolyte abnormality, dehydration. Narrative Course IV was established, labs are drawn and sent, and the patient was placed on cardiac telemetry monitoring and continuous pulse oximetry monitoring. EKG was ordered and interpreted. Electrolytes were sent to lab. Chest x-ray was obtained. The patient was asymptomatic in the emergency department, she was monitored on telemetry monitoring. Chest x-ray reveals cardiomegaly but no acute focal pulmonary infiltrate or pulmonary vascular congestion. The patient' s electrolytes are unremarkable. Troponin is less than 0.02. CPK is unremarkable. The patient appears to have had paroxysmal atrial fibrillation which has resolved after taking metoprolol. The patient currently takes aspirin , is already on metoprolol 50 mg twice a day. She is advised to follow-up with her bench molder apprentice this week. Return if symptoms worsen or progress. Diagnosis Primary Impression: Paroxysmal atrial fibrillation Patient Instructions: General Instructions Additional Instructions: please provide the patient a copy of her EKG, chest x-ray results, and lab results at discharge. Follow-up with her bench molder apprentice. Return if symptoms worsen or progress. Disposition: 01 DISCHARGE HOME Condition: Stable Elier Duran MD Jun 02, 2017 11:05
[2017-06-02 11:06] LABS: CREATININE 0.99 MG/DL (0.50-1.00); GLOMERULAR FILTRATION RATE 57 ML/MIN (>89)
[2017-06-02 11:10] LABS: TROPONIN I LESS THAN 0.02 NG/ML (0.02-0.05)
--- NOTE | 2017-06-02 11:18 | RADRPT ---
EXAM DATE/TIME: 06/02/2017 10:55 [facility] COMPARISON: CHEST SINGLE AP, July 15, 2016, 4:56. INDICATIONS : Chest pain this AM MEDICAL HISTORY : A Fib SURGICAL HISTORY : Cardiac ablation ENCOUNTER: Initial ACUITY: 1 day PAIN SCORE: 10/10 LOCATION: Bilateral chest FINDINGS: Cardiomegaly is noted. The pulmonary vascular pattern is normal. The lungs are clear. CONCLUSION: 1. Cardiomegaly. 2. No focal pulmonary infiltrate or pulmonary vascular congestion. Estevan Guzman MD on June 02, 2017 at 11:16 Board Certified Radiologist. This report was verified electronically.
[2017-06-02 11:41] VITALS: BP 91/58; PULSE 76; RESP 18; O2SAT 98
--- NOTE | 2017-06-02 12:32 | EKG ---
Date Performed: 06/02/2017 Time Performed: 10:23:56 PTAGE: 62 years EKG: Sinus rhythm NORMAL ECG NO PREVIOUS TRACING DOCTOR: Joseph Nieto Interpretating Date/Time 06/02/2017 12:32:09
== END 2017-06-02 12:16 | disposition home or self-care (01) ==
LOC: PHED 10:18
DX: I48.0 Paroxysmal atrial fibrillation (principal); I10 Essential (primary) hypertension
CPT/HCPCS: 71010; 80048; 82550; 82552; 84484; 85025; 93005

== ENCOUNTER 2017-11-29 11:37 | Day surgery (SDC) | payer BC ==
[~2017-11-29 11:37] MED LIST changes: -APIX5TAB PO; -EYECAP PO; -IRON18TA2 PO; -LORA10TA PO; -VITA8000 PO
[2017-11-29] MEDS ORDERED: NS 1000 ML IV SCH (12:00)
[2017-11-29] MEDS ORDERED: ceFAZolin 2 GM PREMIX 50 ML IV SCH (12:15)
[2017-11-29] MEDS ORDERED: MUPIROCIN 2% OINT 1 APPLIC/GM SYR NASAL SCH (12:15)
[2017-11-29] MEDS ORDERED: NO Heparin, Lovenox, Coumadin at least 12 hours prior to procedure. PRN (12:15)
[2017-11-29] MEDS ORDERED: OCUVTAB PO (12:29)
[2017-11-29] MEDS ORDERED: VITA100T65 PO (12:29)
[2017-11-29] MEDS ORDERED: ECASA81 PO (12:29)
[2017-11-29] MEDS ORDERED: CLAR10CA3 PO (12:29)
[2017-11-29] MEDS ORDERED: GLUC1CAP16 PO (12:29)
[2017-11-29] MEDS: POVIDONE IODINE 5% (ANTISEPSIS KIT) 4 APPLICATIONS EACH NARE SCH ×2 (12:32→13:56)
[2017-11-29] MEDS: CHLORHEXIDINE GLUCONATE 2 % 1 PACK (2 CLOTHS) TOPICAL SCH ×2 (12:32→13:56)
--- NOTE | 2017-11-29 13:40 | MA ---
cc: Abhishek Collins MD DATE: 11/29/2017 INDICATION: Atrial fibrillation detection. PROCEDURE PERFORMED: LINQ loop recorder insertion. DESCRIPTION OF PROCEDURE: The patient was brought to the DOC unit in the postabsorptive state. After informed consent was obtained, and a Cura TV LINQ loop recorder was inserted subcutaneously in the left chest. The patient tolerated the procedure well without any apparent complication. Tachybrady pause and atrial fibrillation detection was enabled. Initial R waves was 0.1 millivolts. The serial number was [id number]. Abhishek Collins MD [place]LAY[place] , 01:24 PM , 01:40 PM
== END 2017-11-29 14:10 | disposition home or self-care (01) ==
LOC: HDIC 11:37 → HDOC 11:37
PROVIDERS: ATTEND Nuclear Medicine Nuclear Cardiology
DX: I48.91 Unspecified atrial fibrillation (principal)
CPT/HCPCS: 33282; C1764; J0690; J7030